=== PATIENT | male | born 1980 | race African-American/Black ===

== ENCOUNTER 2017-05-26 12:28 | Emergency (ER) | payer OTHER ==
[2017-05-26] MEDS: DIPHTH,PERTUSS(ACELL),TET TOX 0.5 ML DISP.SYRIN. VAX IM ×2 (13:57)
== END 2017-05-26 14:02 | disposition home or self-care (01) ==
LOC: ER 12:28
DX: S61.214A Laceration without foreign body of right ring finger without damage to nail, initial encounter (principal); Y28.8XXA Contact with other sharp object, undetermined intent, initial encounter; Y93.89 Activity, other specified; Y99.8 Other external cause status; Y92.89 Other specified places as the place of occurrence of the external cause
CPT/HCPCS: 12001; 90471; 90715; 99283-25

== ENCOUNTER 2021-03-29 16:23 | Inpatient (IN) | payer BC, OTHER ==
[~2021-03-29] VITALS: Ht 188 cm; Wt 15.3 kg
[2021-03-29] MEDS ORDERED: IV NORMAL SALINE 1000ML BAG 1,000 ML IV ONE ×2 (17:45)
[2021-03-29] MEDS ORDERED: ACETAMINOPHEN 500 MG TABLET PO ONE (17:45)
--- NOTE | 2021-03-29 17:54 | PHYS DOC ---
Past Medical History Past Medical History: No Pertinent History Past Surgical History: No Surgical History Smoking Status: Never Smoker Alcohol Use: Occasionally Drug Use: None General Adult EDM: Chief Complaint: NAUSEA/VOMITING/DIARRHEA HPI: HPI: Patient is a 40 year old male who presents with nausea and fever that started today. Patient's temperature on arrival was 103.1. Heart rate was 144. Patient denies vomiting/diarrhea. Denies chest pain or shortness of breath. Patient denies taking anything today for symptoms at home. Patient was fully vaccinated for Covid 19. Patient has a history of diabetes, hypertension. Review of Systems: Review of Systems: ROS At least 10 ROS systems have been reviewed and are negative except as documented in the HPI. General: Negative except as outlined in HPI above. Skin: Negative except as outlined in HPI above. HEENT: Negative except as outlined in HPI above. Neck: Negative except as outlined in HPI above. Respiratory: Negative except as outlined in HPI above.. Cardiovascular: Negative except as outlined in HPI above. Abdomen: Negative except as outlined in HPI above. : Negative except as outlined in HPI above. Back/MSK: Negative except as outlined in HPI above. Neuro: Negative except as outlined in HPI above. Psych: Negative except as outlined in HPI above. Heart Score: C/O Chest Pain: No Risk Factors: Risk Factors: DM, Current or recent (<one month) smoker, HTN, HLP, family history of CAD, obesity. Risk Scores: Score 0 - 3: 2.5% MACE over next 6 weeks - Discharge Home Score 4 - 6: 20.3% MACE over next 6 weeks - Admit for Clinical Observation Score 7 - 10: 72.7% MACE over next 6 weeks - Early Invasive Strategies Allergies: Allergies: Allergies Coded Allergies Type Severity Reaction Last Updated Verified No Known Drug Allergies 12/13/13 No Physical Exam: PE: Constitutional: Well developed, well nourished, no acute distress, non-toxic appearance. [] HENT: Normocephalic, atraumatic, bilateral external ears normal, oropharynx moist, no oral exudates, nose normal. [] Eyes: PERRLA, EOMI, conjunctiva normal, no discharge. [] Neck: Normal range of motion, no tenderness, supple, no stridor. [] Cardiovascular:Heart rate regular rhythm, no murmur [] Lungs & Thorax: Bilateral breath sounds clear to auscultation [] Abdomen: Bowel sounds normal, soft, no tenderness, no masses, no pulsatile masses. [] Skin: Warm, dry, no erythema, no rash. [] Back: No tenderness, no CVA tenderness. [] Extremities: No tenderness, no cyanosis, no clubbing, ROM intact, no edema. [] Neurologic: Alert and oriented X 3, normal motor function, normal sensory function, no focal deficits noted. [] Psychologic: Affect normal, judgement normal, mood normal. [] EKG: EKG: Sinus tachycardia. Heart rate 145 bpm. No STEMI. [] Radiology/Procedures: Radiology/Procedures: []Exam: Chest one view INDICATION: Nausea TECHNIQUE: Frontal view of the chest Comparisons: None FINDINGS: The cardiomediastinal silhouette and pulmonary vessels are within normal limits. Hazy opacity in lungs bilaterally. No pleural effusion. IMPRESSION: Findings likely related to mild pulmonary edema. Electronically signed by: Arabella Frias MD (03/29/2021 7:49 PM) [facility] Course & Med Decision Making: Course & Med Decision Making Pertinent Labs and Imaging studies reviewed. (See chart for details) [] 40-year-old male who presents with fever and nausea that started today. Patient temperature on arrival was 103.1, heart rate 145. Work-up in ER consisted of labs, urinalysis, EKG, chest x-ray, ABG. Temperature on arrival was 103.1. Temperature was treated with 1000 mg of Tylenol. After Tylenol was administered, temperature improved, 102.1. Patient's nausea was treated with Zofran while in the ER. Chest x-ray showed findings likely related to mild pulmonary edema. Patient has history of diabetes and hypertension. WBC, 17.7, creatinine 1.6, glucose 262, lactic was 4.6. Patient given 2 L NS bolus. Patient's heart rate improved after NS bolus, heart rate 125. Patient started on Rocephin and azithromycin. Still waiting on results from CTA and UA. Spoke with Dr. White who will be accepting patient for pneumonia and sepsis. Ginny Disclaimer: Ginny Disclaimer: This electronic medical record was generated, in whole or in part, using a voice recognition dictation system. Departure Departure Referrals: UNKNOWN PCP NAME (PCP) QIAN CONWAY APRN Mar 29, 2021 17:53
[2021-03-29] MEDS ORDERED: ONDANSETRON PF 4 MG/2 ML VIAL. IVP ONE (18:00)
[2021-03-29 18:16] LABS: BASO % 0 % (0-3); EOS % 0 % (0-3); HEMATOCRIT 47.1 % (39.0-53.0); HEMOGLOBIN 14.7 g/dL (13.0-17.5); LYMPH # 0.5 x10^3/uL (1.0-4.8); LYMPH % 3 % (24-48); MEAN CORPUSCULAR HEMOGLOBIN 25 pg (25-35); MEAN CORPUSCULAR HGB CONC 31 g/dL (31-37); MEAN CORPUSCULAR VOLUME 79 fL (79-100); MONO # 1.1 x10^3/uL (0.0-1.1); MONO % 6 % (0-9); NEUT # 16.1 x10^3/uL (1.8-7.7); NEUT % 91 % (31-73); PLATELET COUNT 248 x10^3/uL (140-400); RED BLOOD COUNT 5.96 x10^6/uL (4.30-5.70); RED CELL DISTRIBUTION WIDTH 14.9 % (11.5-14.5); WHITE BLOOD COUNT 17.7 x10^3/uL (4.0-11.0)
[2021-03-29 18:44] LABS: INFLUENZA A PATIENT NEGATIVE (NEGATIVE); INFLUENZA B PATIENT NEGATIVE (NEGATIVE)
[2021-03-29 18:50] LABS: CALCIUM 8.9 mg/dL (8.5-10.1); CREATININE 1.6 mg/dL (0.7-1.3); GFR 58.8; POTASSIUM 4.6 mmol/L (3.5-5.1)
[2021-03-29 19:02] LABS: ALBUMIN 3.7 g/dL (3.4-5.0); ALBUMIN/GLOBULIN RATIO 0.7 (1.0-1.7); MAGNESIUM 1.7 mg/dL (1.8-2.4); TOTAL BILIRUBIN 0.9 mg/dL (0.2-1.0); TOTAL PROTEIN 8.7 g/dL (6.4-8.2)
[2021-03-29 19:37] LABS: % BANDS 4 % (0-9); % BASOS 1 % (0-3); % LYMPHS 5 % (24-48); % MONOS 6 % (0-10); % SEGS 84 % (35-66)
[2021-03-29 19:39] LABS: PLT ESTIMATE ADEQUATE (ADEQUATE)
--- NOTE | 2021-03-29 19:51 | RAD ---
Exam: Chest one view INDICATION: Nausea TECHNIQUE: Frontal view of the chest Comparisons: None FINDINGS: The cardiomediastinal silhouette and pulmonary vessels are within normal limits. Hazy opacity in lungs bilaterally. No pleural effusion. IMPRESSION: Findings likely related to mild pulmonary edema. Electronically signed by: Arabella Frias MD (03/29/2021 7:49 PM) [facility]
[2021-03-29] MEDS ORDERED: IOHEXOL 350 MG/ML 100 ML VIAL. IV ONE (20:30)
[2021-03-29] MEDS ORDERED: CONTRAST GIVEN. MC PRN (20:30)
[2021-03-29] MEDS ORDERED: AZITHRMYCN 500MG IVPB FOR OMNI 250 ML IV ONE (20:30)
[2021-03-29] MEDS ORDERED: cefTRIAXone IV Push 1 GM VIAL. IVP ONE (20:30)
--- NOTE | 2021-03-29 20:45 | RAD ---
Exam: CT of chest with contrast INDICATION: Fever TECHNIQUE: Sequential axial images through the chest obtained following the administration of 90 mL o f Isovue-370 IV contrast. Sagittal and coronal reformatted images were reconstructed from the axial d jaye and reviewed. Exposure: One or more of the following in the visualized dose reduction techniques were utilized for this examination: 1. Automated exposure control 2. Adjustment of the MA and/or KV according to patient size 3. Use of iterative of reconstructive technique Comparisons: Chest x-ray same day FINDINGS: Visualized portions of the thyroid are unremarkable. No enlarged mediastinal lymph nodes are identifi ed. Heart size is normal. No pericardial effusion. Thoracic aorta has a normal course and caliber. Pulmon concepción artery is not enlarged. Evaluation for pulmonary emboli limited secondary to contrast bolus timin g. No pulmonary embolus identified within the main or proximal lobar pulmonary arteries. Airways are patent. No consolidation or pneumothorax. No suspicious lung nodules. No pleural effusion or thickening. Visualized upper abdomen is unremarkable. No suspicious osseous lesions or acute fractures. IMPRESSION: 1. Evaluation for pulmonary embolus markedly limited secondary to contrast bolus timing. No embolus identified within the main or proximal lobar pulmonary arteries. 2. No acute process identified in the chest. Electronically signed by: Arabella Frias MD (03/29/2021 8:43 PM) [facility]
[2021-03-29 21:07] LABS: BILIRUBIN,URINE NEGATIVE (NEG); CLARITY,URINE CLOUDY; COLOR,URINE AMBER; NITRITE,URINE NEGATIVE (NEG); PH,URINE 5.5 (<5.0-8.0); PROTEIN,URINE NEGATIVE (NEG-TRACE); UROBILINOGEN,URINE 0.2 mg/dL (0.2 mg/dL)
[2021-03-29 21:28] LABS: HYALINE CASTS, URINE MANY /HPF
[2021-03-29 21:31] LABS: AMORPHOUS SEDIMENT,UR PRESENT /HPF
[2021-03-29 21:33] LABS: BACTERIA,URINE FEW /HPF (0-FEW)
[2021-03-29 23:00] VITALS: BP 120/59
[2021-03-29] MEDS ORDERED: ONDANSETRON PF 4 MG/2 ML VIAL. IVP PRN (23:45)
[2021-03-30 03:00] VITALS: BP 114/53
--- NOTE | 2021-03-30 06:48 | NUR ---
No major change in condition. Has had 2 loose stools since midnight.
--- NOTE | 2021-03-30 09:16 | PDOC1 ---
History and Physical Date of Service: DOS: DATE: 03/30/21 TIME: 09:05 Chief Complaint: Chief Complain: Nausea and fever History of Present Illness: HPI: 40-year-old male with a past medical history of diabetes mellitus and hypertension who comes in for nausea vomiting and fevers. He is found to have a temperature of 103.1 in the ED. Patient also endorses loose bowel movements and some abdominal pain. He was found to be septic in the ED with tachycardia and mildly low blood pressures of 90/60. Lactic acid of 4.6 and pulmonary edema seen on chest x-ray. Patient denies any known sick contacts or recent travel. Denies any chest pain, shortness of breath, dysuria, hematuria or bloody stools. Past Medical/Surgical History: PMH/PSH: Past medical history: Diabetes mellitus and hypertension No past surgical history Allergies: Allergies: Coded Allergies: No Known Drug Allergies (Unverified , 12/13/13) Family History: Family History: Reviewed with no relevant findings Social History: Social History: Denies any alcohol, tobacco or drug abuse Current Medications: Current Medications Current Medications Acetaminophen (Tylenol) 1,000 mg 1X ONCE PO Last administered on 03/29/21at 18:12; Start 03/29/21 at 17:45; Stop 03/29/21 at 17:46; Status DC Sodium Chloride 1,000 ml @ 1,000 mls/hr 1X ONCE IV Last administered on 03/29/21at 18:13; Start 03/29/21 at 17:45; Stop 03/29/21 at 18:44; Status DC Sodium Chloride 1,000 ml @ 1,000 mls/hr 1X ONCE IV Last administered on 03/29/21at 18:13; Start 03/29/21 at 17:45; Stop 03/29/21 at 18:44; Status DC Ondansetron HCl (Zofran) 4 mg 1X ONCE IVP Last administered on 03/29/21at 18:11; Start 03/29/21 at 18:00; Stop 03/29/21 at 18:01; Status DC Ceftriaxone Sodium (Rocephin) 1 gm 1X ONCE IVP Last administered on 03/29/21at 22:14; Start 03/29/21 at 20:30; Stop 03/29/21 at 20:31; Status DC Azithromycin 250 ml @ 250 mls/hr 1X ONCE IV Last administered on 03/29/21at 22:15; Start 03/29/21 at 20:30; Stop 03/29/21 at 21:29; Status DC Iohexol (Omnipaque 350 Mg/ml) 90 ml 1X ONCE IV Last administered on 03/29/21at 20:44; Start 03/29/21 at 20:30; Stop 03/29/21 at 20:31; Status DC Info (CONTRAST GIVEN -- Rx MONITORING) 1 each PRN DAILY PRN MC SEE COMMENTS; Start 03/29/21 at 20:30; Stop 03/31/21 at 20:29 Ondansetron HCl (Zofran) 4 mg PRN Q6HRS PRN IVP NAUSEA/VOMITING; Start 03/29/21 at 23:45 ROS: Review of Systems Review of System REVIEW OF SYSTEMS: GENERAL: Denies weakness SKIN: No bruising, hair changes or rashes. EYES: No blurred, double or loss of vision. NOSE AND THROAT: No history of nosebleeds, hoarseness or sore throat. HEART: No history of palpitations, chest pain or shortness of breath on exertion. LUNGS: Denies cough, hemoptysis, wheezing or shortness of breath. GASTROINTESTINAL: Denies changes in appetite, nausea, vomiting, diarrhea or constipation. GENITOURINARY: No history of frequency, urgency, hesitancy or nocturia. NEUROLOGIC: Denies history of numbness, tingling, or tremor. PSYCHIATRIC: No history of panic, anxiety or depression. ENDOCRINE: No history of heat or cold intolerance, polyuria or polydipsia. EXTREMITIES: Denies joint pain, pain on walking or stiffness. Physical Exam: Vital Signs: Vital Signs Date Time Temp Pulse Resp B/P (MAP) Pulse Ox O2 Delivery O2 Flow Rate FiO2 03/30/21 03:00 99.4 130 18 114/53 (73) 94 Room Air 99.4 Physcial Exam: GEN: No apparent distress. Alert and oriented HEENT: Normal cephalic, atraumatic, external auditory canals are patent EYES: Extraocular muscles are intact, pupil are equally round and reactive to light and accommodation MUSCULOSKELETAL: Well developed , well nourished, good range of motion ENDOCRINE: No thyromegaly was palpated LYMPHATICS: No cervical chain or axillary nodes were noted HEMATOPOIETIC: No bruising NECK: Supple, no JVD, no thyromegaly was noted LUNGS: Clear to auscultation in all lung [place] without rhonchi or wheezing HEART: RRR, S!, S2 present. Peripheral pulses intact, no obvious murmurs noted ABDOMEN: Soft, nontender. Positive bowel sounds, no organomegaly, normal bowel sounds EXTREMITIES: Without clubbing, cyanosis, or edema. Pedal pulses intact. N egative Homans sign NEUROLOGIC: Normal speech and tone. A&O x 3, moves all extremities, no obvious focal deficits PSYCHIATRIC: Normal affect, normal mood. Stable SKIN: No ulcerations or rashes, good skin turgor, no jaundice VASCULAR: Good capillary refill, neurovascular bundle appears to be intact Labs: Labs: Laboratory Tests Test 03/29/21 17:50 03/29/21 17:52 03/29/21 21:03 03/29/21 21:50 Influenza Type A Antigen Negative (NEGATIVE) Influenza Type B Antigen Negative (NEGATIVE) SARS-CoV-2 Antigen (Rapid) Negative (NEGATIVE) White Blood Count 17.7 x10^3/uL (4.0-11.0) Red Blood Count 5.96 x10^6/uL (4.30-5.70) Hemoglobin 14.7 g/dL (13.0-17.5) Hematocrit 47.1 % (39.0-53.0) Mean Corpuscular Volume 79 fL (79-100) Mean Corpuscular Hemoglobin 25 pg (25-35) Mean Corpuscular Hemoglobin Concent 31 g/dL (31-37) Red Cell Distribution Width 14.9 % (11.5-14.5) Platelet Count 248 x10^3/uL (140-400) Neutrophils (%) (Auto) 91 % (31-73) Lymphocytes (%) (Auto) 3 % (24-48) Monocytes (%) (Auto) 6 % (0-9) Eosinophils (%) (Auto) 0 % (0-3) Basophils (%) (Auto) 0 % (0-3) Neutrophils # (Auto) 16.1 x10^3/uL (1.8-7.7) Lymphocytes # (Auto) 0.5 x10^3/uL (1.0-4.8) Monocytes # (Auto) 1.1 x10^3/uL (0.0-1.1) Eosinophils # (Auto) 0.0 x10^3/uL (0.0-0.7) Basophils # (Auto) 0.0 x10^3/uL (0.0-0.2) Segmented Neutrophils % 84 % (35-66) Band Neutrophils % 4 % (0-9) Lymphocytes % 5 % (24-48) Monocytes % 6 % (0-10) Basophils % 1 % (0-3) Platelet Estimate Adequate (ADEQUATE) Large Platelets Few Sodium Level 135 mmol/L (136-145) Potassium Level 4.6 mmol/L (3.5-5.1) Chloride Level 99 mmol/L (98-107) Carbon Dioxide Level 22 mmol/L (21-32) Anion Gap 14 (6-14) Blood Urea Nitrogen 18 mg/dL (8-26) Creatinine 1.6 mg/dL (0.7-1.3) Estimated GFR (Cockcroft-Gault) 58.8 BUN/Creatinine Ratio 11 (6-20) Glucose Level 262 mg/dL (70-99) Lactic Acid Level 4.6 mmol/L (0.4-2.0) 3.7 mmol/L (0.4-2.0) Calcium Level 8.9 mg/dL (8.5-10.1) Magnesium Level 1.7 mg/dL (1.8-2.4) Total Bilirubin 0.9 mg/dL (0.2-1.0) Aspartate Amino Transf (AST/SGOT) 17 U/L (15-37) Alanine Aminotransferase (ALT/SGPT) 49 U/L (16-63) Alkaline Phosphatase 76 U/L (46-116) PU-Kkq-H-Type Natriuretic Peptide 32 pg/mL (0-124) Total Protein 8.7 g/dL (6.4-8.2) Albumin 3.7 g/dL (3.4-5.0) Albumin/Globulin Ratio 0.7 (1.0-1.7) Urine Color Hortencia Urine Clarity Cloudy Urine pH 5.5 (<5.0-8.0) Urine Specific [place] 1.025 (1.000-1.030) Urine Protein Negative mg/dL (NEG-TRACE) Urine Glucose (UA) 100 mg/dL (NEG) Urine Ketones (Stick) Trace mg/dL (NEG) Urine Blood Negative (NEG) Urine Nitrite Negative (NEG) Urine Bilirubin Negative (NEG) Urine Urobilinogen Dipstick 0.2 mg/dL (0.2 mg/dL) Urine Leukocyte Esterase Trace (NEG) Urine RBC 1-2 /HPF (0-2) Urine WBC 5-10 /HPF (0-4) Urine Squamous Epithelial Cells Mod /LPF Urine Amorphous Sediment Present /HPF Urine Bacteria Few /HPF (0-FEW) Urine Hyaline Casts Many /HPF Urine Mucus Marked /LPF Test 03/30/21 08:30 Glucose (Fingerstick) 285 mg/dL (70-99) Laboratory Tests Test 03/29/21 17:50 03/29/21 17:52 03/29/21 21:03 03/29/21 21:50 Influenza Type A Antigen Negative (NEGATIVE) Influenza Type B Antigen Negative (NEGATIVE) SARS-CoV-2 Antigen (Rapid) Negative (NEGATIVE) White Blood Count 17.7 x10^3/uL (4.0-11.0) Red Blood Count 5.96 x10^6/uL (4.30-5.70) Hemoglobin 14.7 g/dL (13.0-17.5) Hematocrit 47.1 % (39.0-53.0) Mean Corpuscular Volume 79 fL (79-100) Mean Corpuscular Hemoglobin 25 pg (25-35) Mean Corpuscular Hemoglobin Concent 31 g/dL (31-37) Red Cell Distribution Width 14.9 % (11.5-14.5) Platelet Count 248 x10^3/uL (140-400) Neutrophils (%) (Auto) 91 % (31-73) Lymphocytes (%) (Auto) 3 % (24-48) Monocytes (%) (Auto) 6 % (0-9) Eosinophils (%) (Auto) 0 % (0-3) Basophils (%) (Auto) 0 % (0-3) Neutrophils # (Auto) 16.1 x10^3/uL (1.8-7.7) Lymphocytes # (Auto) 0.5 x10^3/uL (1.0-4.8) Monocytes # (Auto) 1.1 x10^3/uL (0.0-1.1) Eosinophils # (Auto) 0.0 x10^3/uL (0.0-0.7) Basophils # (Auto) 0.0 x10^3/uL (0.0-0.2) Segmented Neutrophils % 84 % (35-66) Band Neutrophils % 4 % (0-9) Lymphocytes % 5 % (24-48) Monocytes % 6 % (0-10) Basophils % 1 % (0-3) Platelet Estimate Adequate (ADEQUATE) Large Platelets Few Sodium Level 135 mmol/L (136-145) Potassium Level 4.6 mmol/L (3.5-5.1) Chloride Level 99 mmol/L (98-107) Carbon Dioxide Level 22 mmol/L (21-32) Anion Gap 14 (6-14) Blood Urea Nitrogen 18 mg/dL (8-26) Creatinine 1.6 mg/dL (0.7-1.3) Estimated GFR (Cockcroft-Gault) 58.8 BUN/Creatinine Ratio 11 (6-20) Glucose Level 262 mg/dL (70-99) Lactic Acid Level 4.6 mmol/L (0.4-2.0) 3.7 mmol/L (0.4-2.0) Calcium Level 8.9 mg/dL (8.5-10.1) Magnesium Level 1.7 mg/dL (1.8-2.4) Total Bilirubin 0.9 mg/dL (0.2-1.0) Aspartate Amino Transf (AST/SGOT) 17 U/L (15-37) Alanine Aminotransferase (ALT/SGPT) 49 U/L (16-63) Alkaline Phosphatase 76 U/L (46-116) QU-Unh-D-Type Natriuretic Peptide 32 pg/mL (0-124) Total Protein 8.7 g/dL (6.4-8.2) Albumin 3.7 g/dL (3.4-5.0) Albumin/Globulin Ratio 0.7 (1.0-1.7) Urine Color Hortencia Urine Clarity Cloudy Urine pH 5.5 (<5.0-8.0) Urine Specific [place] 1.025 (1.000-1.030) Urine Protein Negative mg/dL (NEG-TRACE) Urine Glucose (UA) 100 mg/dL (NEG) Urine Ketones (Stick) Trace mg/dL (NEG) Urine Blood Negative (NEG) Urine Nitrite Negative (NEG) Urine Bilirubin Negative (NEG) Urine Urobilinogen Dipstick 0.2 mg/dL (0.2 mg/dL) Urine Leukocyte Esterase Trace (NEG) Urine RBC 1-2 /HPF (0-2) Urine WBC 5-10 /HPF (0-4) Urine Squamous Epithelial Cells Mod /LPF Urine Amorphous Sediment Present /HPF Urine Bacteria Few /HPF (0-FEW) Urine Hyaline Casts Many /HPF Urine Mucus Marked /LPF Test 03/30/21 08:30 Glucose (Fingerstick) 285 mg/dL (70-99) Images: Images PROCEDURE: CHEST AP ONLY Exam: Chest one view INDICATION: Nausea TECHNIQUE: Frontal view of the chest Comparisons: None FINDINGS: The cardiomediastinal silhouette and pulmonary vessels are within normal limits. Hazy opacity in lungs bilaterally. No pleural effusion. IMPRESSION: Findings likely related to mild pulmonary edema. PROCEDURE: CT ANGIOGRAPHY CHEST Exam: CT of chest with contrast INDICATION: Fever TECHNIQUE: Sequential axial images through the chest obtained following the administration of 90 mL of Isovue-370 IV contrast. Sagittal and coronal reformatted images were reconstructed from the axial data and reviewed. Exposure: One or more of the following in the visualized dose reduction techniques were utilized for this examination: 1. Automated exposure control 2. Adjustment of the MA and/or KV according to patient size 3. Use of iterative of reconstructive technique Comparisons: Chest x-ray same day FINDINGS: Visualized portions of the thyroid are unremarkable. No enlarged mediastinal lymph nodes are identified. Heart size is normal. No pericardial effusion. Thoracic aorta has a normal course and caliber. Pulmonary artery is not enlarged. Evaluation for pulmonary emboli limited secondary to contrast bolus timing. No pulmonary embolus identif ied within the main or proximal lobar pulmonary arteries. Airways are patent. No consolidation or pneumothorax. No suspicious lung nodules. No pleural effusion or thickening. Visualized upper abdomen is unremarkable. No suspicious osseous lesions or acute fractures. IMPRESSION: 1. Evaluation for pulmonary embolus markedly limited secondary to contrast bolus timing. No embolus identified within the main or proximal lobar pulmonary arteries. 2. No acute process identified in the chest. Assessment/Plan Assessment/Plan Sepsis Gram-negative bacteremia Acute colitis of the ascending colon, likely due to gram-negative organisms and anaerobes Pulmonary edema Lactic acidosis QING due to vasomotor nephropathy Admit to hospitalist service for further management Pending C. difficile Continue Zosyn Continue IV fluids Pending blood culture SNS R ISS and Accu-Cheks Lovenox for DVT prophylaxis Protonix GI prophylaxis ADA diet CODE STATUS full Discussed with RN and SW Disposition inpatient management as above DPOA: Cousin? Justifications for Admission Other Justification MAKAYLA SMITH MD Mar 30, 2021 09:16
[2021-03-30] MEDS ORDERED: ACETAMINOPHEN 325 MG TABLET. PO PRN (09:30)
[2021-03-30] MEDS ORDERED: ZOLPIDEM 5 MG TABLET. PO PRN ×2 (09:30)
[2021-03-30] MEDS ORDERED: ONDANSETRON PF 4 MG/2 ML VIAL. IVP PRN (09:30)
[2021-03-30] MEDS ORDERED: DOCUSATE SODIUM 100 MG CAPSULE. PO PRN (09:30)
[2021-03-30] MEDS ORDERED: DEXTROSE 50% 25 GM / 50ML DISP.SYRIN. IV PRN (09:30)
[2021-03-30] MEDS ORDERED: diphenhydrAMINE 50 MG/ML VIAL IVP PRN (09:30)
[2021-03-30] MEDS ORDERED: PROCHLORPERAZINE 10 MG/2 ML VIAL. IV PRN (09:30)
[2021-03-30] MEDS ORDERED: diphenhydrAMINE HCL 25 MG CAPSULE PO PRN ×2 (09:30)
[2021-03-30] MEDS ORDERED: LORazepam 0.5 MG TABLET PO PRN (09:30)
[2021-03-30] MEDS ORDERED: SENNOSIDES 8.6 MG TABLET PO PRN (09:30)
[2021-03-30] MEDS ORDERED: PIPERACILLIN/TAZOBACTAM 3.375 GM in IV NORMAL SALINE 50ML 50 ML IV ONE (10:00)
[2021-03-30] MEDS: ENOXAPARIN 40 MG/0.4 ML SYRINGE. SQ SCH (10:07)
--- NOTE | 2021-03-30 10:43 | PDOC ---
Infectious Disease Note Vital Signs: Vital Signs Vital Signs Date Time Temp Pulse Resp B/P (MAP) Pulse Ox O2 Delivery O2 Flow Rate FiO2 03/30/21 10:16 107 17 103/63 (76) 95 Room Air 03/30/21 03:00 99.4 99.4 Medications: Inpatient Meds: Medications reviewed. Labs: Lab Laboratory Tests Test 03/29/21 17:50 03/29/21 17:52 03/29/21 21:03 03/29/21 21:50 Influenza Type A Antigen Negative (NEGATIVE) Influenza Type B Antigen Negative (NEGATIVE) SARS-CoV-2 RNA (DIOR) Negative (Negative) SARS-CoV-2 Antigen (Rapid) Negative (NEGATIVE) White Blood Count 17.7 x10^3/uL (4.0-11.0) Red Blood Count 5.96 x10^6/uL (4.30-5.70) Hemoglobin 14.7 g/dL (13.0-17.5) Hematocrit 47.1 % (39.0-53.0) Mean Corpuscular Volume 79 fL (79-100) Mean Corpuscular Hemoglobin 25 pg (25-35) Mean Corpuscular Hemoglobin Concent 31 g/dL (31-37) Red Cell Distribution Width 14.9 % (11.5-14.5) Platelet Count 248 x10^3/uL (140-400) Neutrophils (%) (Auto) 91 % (31-73) Lymphocytes (%) (Auto) 3 % (24-48) Monocytes (%) (Auto) 6 % (0-9) Eosinophils (%) (Auto) 0 % (0-3) Basophils (%) (Auto) 0 % (0-3) Neutrophils # (Auto) 16.1 x10^3/uL (1.8-7.7) Lymphocytes # (Auto) 0.5 x10^3/uL (1.0-4.8) Monocytes # (Auto) 1.1 x10^3/uL (0.0-1.1) Eosinophils # (Auto) 0.0 x10^3/uL (0.0-0.7) Basophils # (Auto) 0.0 x10^3/uL (0.0-0.2) Segmented Neutrophils % 84 % (35-66) Band Neutrophils % 4 % (0-9) Lymphocytes % 5 % (24-48) Monocytes % 6 % (0-10) Basophils % 1 % (0-3) Platelet Estimate Adequate (ADEQUATE) Large Platelets Few Sodium Level 135 mmol/L (136-145) Potassium Level 4.6 mmol/L (3.5-5.1) Chloride Level 99 mmol/L (98-107) Carbon Dioxide Level 22 mmol/L (21-32) Anion Gap 14 (6-14) Blood Urea Nitrogen 18 mg/dL (8-26) Creatinine 1.6 mg/dL (0.7-1.3) Estimated GFR (Cockcroft-Gault) 58.8 BUN/Creatinine Ratio 11 (6-20) Glucose Level 262 mg/dL (70-99) Lactic Acid Level 4.6 mmol/L (0.4-2.0) 3.7 mmol/L (0.4-2.0) Calcium Level 8.9 mg/dL (8.5-10.1) Magnesium Level 1.7 mg/dL (1.8-2.4) Total Bilirubin 0.9 mg/dL (0.2-1.0) Aspartate Amino Transf (AST/SGOT) 17 U/L (15-37) Alanine Aminotransferase (ALT/SGPT) 49 U/L (16-63) Alkaline Phosphatase 76 U/L (46-116) MT-Gbj-S-Type Natriuretic Peptide 32 pg/mL (0-124) Total Protein 8.7 g/dL (6.4-8.2) Albumin 3.7 g/dL (3.4-5.0) Albumin/Globulin Ratio 0.7 (1.0-1.7) Urine Color Hortencia Urine Clarity Cloudy Urine pH 5.5 (<5.0-8.0) Urine Specific [place] 1.025 (1.000-1.030) Urine Protein Negative mg/dL (NEG-TRACE) Urine Glucose (UA) 100 mg/dL (NEG) Urine Ketones (Stick) Trace mg/dL (NEG) Urine Blood Negative (NEG) Urine Nitrite Negative (NEG) Urine Bilirubin Negative (NEG) Urine Urobilinogen Dipstick 0.2 mg/dL (0.2 mg/dL) Urine Leukocyte Esterase Trace (NEG) Urine RBC 1-2 /HPF (0-2) Urine WBC 5-10 /HPF (0-4) Urine Squamous Epithelial Cells Mod /LPF Urine Amorphous Sediment Present /HPF Urine Bacteria Few /HPF (0-FEW) Urine Hyaline Casts Many /HPF Urine Mucus Marked /LPF Test 03/30/21 08:30 Glucose (Fingerstick) 285 mg/dL (70-99) Objective: Assessment: pt seen and examined ID consult dictated Plan: Plan of Care cont zosyn f/u gnr in bc consider abdominal imaging Thank you [id number] KULWINDER HUANG MD Mar 30, 2021 10:43
[2021-03-30] MEDS ORDERED: oxyCODONE/APAP 5/325 1 TAB TABLET PO PRN (10:45)
[2021-03-30] MEDS ORDERED: FAMOTIDINE 20 MG TABLET. PO ONE (10:45)
[2021-03-30] MEDS ORDERED: SIMETHICONE 80 MG TAB.CHEW PO PRN (10:45)
--- NOTE | 2021-03-30 11:07 | CONS ---
DATE OF CONSULTATION: 03/30/2021 REFERRING PHYSICIAN: Dr. White. REASON FOR CONSULTATION: Gram-negative bacteremia, antibiotic management. HISTORY OF PRESENT ILLNESS: A 40-year-old male with history of diabetes, hypertension, presented to the ER yesterday with complaints of nausea, fever, vomiting, loose bowel movement and some abdominal pain. The patient's temperature on arrival was 103.1. He was tachycardic. White count was elevated at 17 K in the ED with lactate of 4.6, creatinine of 1.6. UA showed 5-10 wbc's. Influenza screen negative. SARS-COVID negative. The patient underwent CTA of the chest, which was limited, but negative for PE, no acute process was identified in the chest. Chest x-ray revealed pulmonary edema like changes. The patient was started on Zosyn, also had received 1 dose of ceftriaxone and azithromycin. Blood cultures from 03/29 is positive 1 out of 4 bottles for gram-negative jabari. ID consultation has been requested for antibiotic management. Today, the patient feels a little better. Fever pattern has improved, still continues to have some abdominal discomfort and nausea. Denies any sick contact. Denies being on any antibiotics prior to admission. PAST MEDICAL HISTORY: Diabetes mellitus and hypertension. CURRENT MEDICATIONS: Zosyn. The patient has also received ceftriaxone and azithromycin. SOCIAL HISTORY: Denies smoking, ETOH, or illicit drug use. Lives alone. No sick contact. Has been vaccinated against COVID. ALLERGIES: No known drug allergies. REVIEW OF SYSTEMS: Negative except for above in HPI. PHYSICAL EXAMINATION: VITAL SIGNS: Temperature 99.4, T-max 103, pulse of 107, respirations 17, blood pressure 103/63, oxygen saturation 95% on room air. GENERAL: Alert, oriented x 3 male, appears tired, lying in ER on [place] in no acute distress, pleasant, cooperative. HEENT: Normocephalic, atraumatic. Anicteric. No thrush. Oral mucosa moist. NECK: Supple, no JVD. LUNGS: Clear bilaterally. No wheezing. HEART: S1, S2. No gallops or murmurs. ABDOMEN: Soft, mild diffuse tenderness. No rebound or guarding. Bowel sounds present. EXTREMITIES: No edema, no cyanosis. DERMATOLOGIC: Warm, dry, no generalized rash. NEUROLOGIC: Alert, oriented x 3, grossly nonfocal. PSYCHIATRIC: Calm and cooperative. LABORATORY DATA: WBC 17.7, hemoglobin 14.7, hematocrit 47.1, platelets 248. Sodium 135, potassium 4.6, chloride 99, bicarbonate 22, BUN 18, creatinine 1.6. Lactate 4.6, repeat is 3.7. LFTs are normal. UA shows 5-10 wbc's. SARS-COVID negative. Influenza screen negative. IMAGING: CTA chest as above. Chest x-ray reviewed. MICRO: Blood culture 1 out of 4 bottles positive for gram-negative jabari. IMPRESSION: 1. Sepsis from gram-negative bacteremia. 2. Gram-negative bacteremia, present on admission, source appears GI. 3. Pyuria. 4. Fever. 5. Leukocytosis and lactic acidosis. 6. Acute kidney injury. Likely dehydration 7. Nausea, vomiting, diarrhea. 8. Abdominal pain. 9. Diabetes. 10. Hypertension. RECOMMENDATIONS: 1. Continue Zosyn. 2. Consider abdominal imaging. 3. Follow up gram-negative jabari in blood cultures. 4. Follow up labs and cultures. Follow-up C. difficile PCR 5. Continue supportive care. 6. Maintain adequate hydration. Discussed with RN in ED. Thank you, Dr. White, for consulting Infectious Disease to participate in this patient's care. FERN DR: Vinod TID: [id number] [facility] H[facility]ITALKenrick
--- NOTE | 2021-03-30 11:39 | EKG ---
[facility] [address] [place] [address] Test Date: 2021-03-29 Test Time: 17:48:09 Pat Name: LEXX SOSA Department: Room: ED HOLD 18 Gender: M Equipment Driver: [id number] : 1980 Requested By: QIAN CONWAY Order Number: [id number] Reading MD: Jermaine Pugh Measurements Intervals [place] Rate: 145 P: 23 [place]: 142 QRS: -42 QRSD: 84 T: 66 QT: 268 QTc: 419 Interpretive Statements SINUS TACHYCARDIA ABNORMAL LEFT AXIS DEVIATION LEFT ANTERIOR FASCICULAR BLOCK ABNORMAL ECG RI6.01 No previous ECG available for comparison Electronically Signed On 03-31-2021 8:18:18 [employer]AR THERMAL TECHNICIAN by Jermaine Pugh
--- NOTE | 2021-03-30 13:00 | RAD ---
EXAM: Abdomen and pelvis CT without intravenous contrast. HISTORY: Nausea. Pain. TECHNIQUE: Computed tomographic images of the abdomen and pelvis were obtained without contrast. Mult iplanar reformatting was performed. *One or more of the following individualized dose reduction techniques were utilized for this examina tion: 1. Automated exposure control. 2. Adjustment of the mA and/or kV according to patient size. 3. Use of iterative reconstruction technique. COMPARISON: None. FINDINGS: Evaluation of the lower thorax demonstration no infiltrate or pleural effusion. The heart i s normal in size. There is hepatic steatosis. No focal hepatic lesion is seen. The gallbladder, pancr eas, spleen, adrenal glands and kidneys are unremarkable. There is no appendicitis. There is circumferential wall thickening with surrounding fatty stranding i nvolving the colon from the proximal ascending colon to the descending-sigmoid colon junction. The im aging appearance favors acute colitis. There is no bowel obstruction. There is no free air. The aorta is normal in caliber. There is no lymp hadenopathy. There is contrast within the bladder due to a recent contrast-enhanced chest CT. There i s gas within the ventral abdominal wall fat due to a medication injection site. There is fixation ins trumentation within the right hemipelvis. There is no acute fracture or suspicious osseous lesion. IMPRESSION: 1. Acute colitis from the ascending colon to the descending-sigmoid junction. Correlate for infectiou s or inflammatory etiologies. 2. Hepatic steatosis. Electronically signed by: Sinai Ramires MD (03/30/2021 12:58 PM) [id number]
[2021-03-30] MEDS ORDERED: PIPERACILLIN/TAZOBACTAM 3.375 GM in IV NORMAL SALINE 50ML 50 ML IV SCH (18:00)
[2021-03-30 19:00] VITALS: BP 110/57
[2021-03-30] MEDS: PIPERACILLIN/TAZOBACTAM 4.5 GM in IV NORMAL SALINE 100ML 100 ML IV SCH ×2 (19:19→23:53)
[2021-03-30] MEDS: FAMOTIDINE 20 MG TABLET. PO SCH (20:17)
[2021-03-30 23:00] VITALS: BP 110/65
[2021-03-31 03:00] VITALS: BP 120/70
[2021-03-31] MEDS: PIPERACILLIN/TAZOBACTAM 4.5 GM in IV NORMAL SALINE 100ML 100 ML IV SCH ×3 (04:58→17:44)
[2021-03-31 07:00] VITALS: BP 124/71
[2021-03-31 07:03] LABS: BASO # 0.1 x10^3/uL (0.0-0.2); BASO % 1 % (0-3); EOS % 0 % (0-3); HEMATOCRIT 40.9 % (39.0-53.0); LYMPH # 0.9 x10^3/uL (1.0-4.8); LYMPH % 11 % (24-48); MEAN CORPUSCULAR HEMOGLOBIN 25 pg (25-35); MEAN CORPUSCULAR HGB CONC 32 g/dL (31-37); MEAN CORPUSCULAR VOLUME 78 fL (79-100); MONO # 0.5 x10^3/uL (0.0-1.1); MONO % 6 % (0-9); NEUT # 6.7 x10^3/uL (1.8-7.7); NEUT % 83 % (31-73); PLATELET COUNT 214 x10^3/uL (140-400); RED BLOOD COUNT 5.24 x10^6/uL (4.30-5.70); RED CELL DISTRIBUTION WIDTH 15.1 % (11.5-14.5); WHITE BLOOD COUNT 8.1 x10^3/uL (4.0-11.0)
[2021-03-31 07:41] LABS: CALCIUM 8.1 mg/dL (8.5-10.1); CREATININE 1.2 mg/dL (0.7-1.3); MAGNESIUM 2.1 mg/dL (1.8-2.4); PHOSPHORUS 3.7 mg/dL (2.6-4.7)
--- NOTE | 2021-03-31 08:47 | PDOC ---
Infectious Disease Note Subjective: Subjective pt feels a little better less nausea, vomiting, diarrhea still has abdo cramps Vital Signs: Vital Signs Vital Signs Date Time Temp Pulse Resp B/P (MAP) Pulse Ox O2 Delivery O2 Flow Rate FiO2 03/31/21 03:00 99.2 112 20 120/70 (87) 94 Room Air 99.2 Physical Exam: PHYSICAL EXAM GENERAL: Alert, oriented x 3 male, in no acute distress, pleasant, cooperative. HEENT: Normocephalic, atraumatic. Anicteric. No thrush. Oral mucosa moist. NECK: Supple, no JVD. LUNGS: Clear bilaterally. No wheezing. HEART: S1, S2. No gallops or murmurs. ABDOMEN: Soft, mild diffuse tenderness. No rebound or guarding. Bowel sounds present. EXTREMITIES: No edema, no cyanosis. DERMATOLOGIC: Warm, dry, no generalized rash. NEUROLOGIC: Alert, oriented x 3, grossly nonfocal. PSYCHIATRIC: Calm and cooperative. Medications: Inpatient Meds: Medications reviewed. Labs: Lab Laboratory Tests Test 03/30/21 20:14 03/31/21 05:45 03/31/21 07:27 Glucose (Fingerstick) 226 mg/dL (70-99) 200 mg/dL (70-99) White Blood Count 8.1 x10^3/uL (4.0-11.0) Red Blood Count 5.24 x10^6/uL (4.30-5.70) Hemoglobin 13.0 g/dL (13.0-17.5) Hematocrit 40.9 % (39.0-53.0) Mean Corpuscular Volume 78 fL (79-100) Mean Corpuscular Hemoglobin 25 pg (25-35) Mean Corpuscular Hemoglobin Concent 32 g/dL (31-37) Red Cell Distribution Width 15.1 % (11.5-14.5) Platelet Count 214 x10^3/uL (140-400) Neutrophils (%) (Auto) 83 % (31-73) Lymphocytes (%) (Auto) 11 % (24-48) Monocytes (%) (Auto) 6 % (0-9) Eosinophils (%) (Auto) 0 % (0-3) Basophils (%) (Auto) 1 % (0-3) Neutrophils # (Auto) 6.7 x10^3/uL (1.8-7.7) Lymphocytes # (Auto) 0.9 x10^3/uL (1.0-4.8) Monocytes # (Auto) 0.5 x10^3/uL (0.0-1.1) Eosinophils # (Auto) 0.0 x10^3/uL (0.0-0.7) Basophils # (Auto) 0.1 x10^3/uL (0.0-0.2) Sodium Level 141 mmol/L (136-145) Potassium Level 4.0 mmol/L (3.5-5.1) Chloride Level 104 mmol/L (98-107) Carbon Dioxide Level 22 mmol/L (21-32) Anion Gap 15 (6-14) Blood Urea Nitrogen 12 mg/dL (8-26) Creatinine 1.2 mg/dL (0.7-1.3) Estimated GFR (Cockcroft-Gault) 82.0 Glucose Level 242 mg/dL (70-99) Calcium Level 8.1 mg/dL (8.5-10.1) Phosphorus Level 3.7 mg/dL (2.6-4.7) Magnesium Level 2.1 mg/dL (1.8-2.4) Micro PATIENT: LEXX SOSA DACCOUNT: [id number] : 1980 LOCATION: ED HOLD AGE: 40 SEX: M EXAM STATUS: ADM IN ORD. PHYSICIAN: KULWINDER HUANG MD REASON: nausea ,abdo pain, gram neg bacteremia PROCEDURE: CT ABDOMEN PELVIS WO CONTRAST EXAM: Abdomen and pelvis CT without intravenous contrast. HISTORY: Nausea. Pain. TECHNIQUE: Computed tomographic images of the abdomen and pelvis were obtained without contrast. Multiplanar reformatting was performed. *One or more of the following individualized dose reduction techniques were utilized for this examination: 1. Automated exposure control. 2. Adjustment of the mA and/or kV according to patient size. 3. Use of iterative reconstruction technique. COMPARISON: None. FINDINGS: Evaluation of the lower thorax demonstration no infiltrate or pleural effusion. The heart is normal in size. There is hepatic steatosis. No focal hepatic lesion is seen. The gallbladder, pancreas, spleen, adrenal glands and kidneys are unremarkable. There is no appendicitis. There is circumferential wall thickening with surrounding fatty stranding involving the colon from the proximal ascending colon to the descending-sigmoid colon junction. The imaging appearance favors acute colitis. There is no bowel obstruction. There is no free air. The aorta is normal in caliber. There is no lymphadenopathy. There is contrast within the bladder due to a recent contrast-enhanced chest CT. There is gas within the ventral abdominal wall fat due to a medication injection site. There is fixation instrumentation within the right hemipelvis. There is no acute fracture or suspicious osseous lesion. IMPRESSION: 1. Acute colitis from the ascending colon to the descending-sigmoid junction. Correlate for infectious or inflammatory etiologies. 2. Hepatic steatosis. RUN DATE: 03/31/21 [facility] *LIVE* PAGE 1 RUN TIME: 075 Specimen Inquiry PATIENT: LEXX SOSA Kenrick ACCT: [id number] LOC: [address] [place] [address] U: [id number] AGE/SX: 40/M ROOM: 562 RE03/29/[address]: MAKAYLA SMITH MD : 1980 BED: 1 DIS: STATUS: ADM IN TLOC: SPEC #: [id number] KEL: 03/29/21 STATUS: KOBE REQ #: [id number] RECD: 03/29/21-1799 [facility] DR: QIAN CONWAY APRN SOURCE: BLOOD ENTR: 03/29/21-[address]: BRIAN,STAFF [facility]: UNKNOWN PCP NAME ORDERED: BCULT Procedure Result BLOOD CULTURE Final GRAM POSITIVE COCCI IN CLUSTERS IN THE ANAEROBIC BOTTLE OF THE SECOND SET. 2 OF 4 BOTTLES ARE POSITIVE OF 2 SETS COLLECTED. CALLED TO NAYELY THORNE IN ER 03/30/21 AT 1059 BY Jarrell AMOS. CULTURES HAVE BEEN SENT TO [facility] FOR FURTHER IDENTIFICATION. AMMENDED REPORT: GRAM NEGATIVE RODS, IN THE AEROBIC BOTTLE OF THIS SET. 3 OF 4 BOTTLES ARE POSITIVE, BOTH SETS. CALLED TO SARA REYNOLDS RN ON 5S AT 7:55 ON 03/31/21 DW MT SENT TO [facility] FOR FURTHER WORKUP. * This is a corrected result. * A prior result that was reported as final has been changed. Objective: Assessment: 1. Sepsis from gram-negative bacteremia and GPC. 2. Gram-negative bacteremia, present on admission, source GI. 3. Pyuria. Urine culture negative so far 4. Fever. Improved 5. Leukocytosis and lactic acidosis. Improving 6. Acute kidney injury. Likely dehydration 7. Nausea, vomiting, diarrhea. Improving. C. difficile negative 8. Abdominal pain. CT shows colitis 9. Diabetes. 10. Hypertension. Gram-positive bacteremia present on admission source appears GI Plan: Plan of Care 1. Continue Zosyn. 2. Start daptomycin 3. Follow up gram-negative jabari and GPC in blood cultures. Called micro lab this a.m. multiple times. No answer Repeat blood cultures in am 4. Follow up labs and cultures. 5. Continue supportive care. 6. Maintain adequate hydration. Discussed with KULWINDER BARRIOS MD Mar 31, 2021 08:47
[2021-03-31] MEDS: DOCUSATE SODIUM 100 MG CAPSULE. PO SCH ×2 (09:00→09:02)
[2021-03-31] MEDS: ENOXAPARIN 40 MG/0.4 ML SYRINGE. SQ SCH (09:02)
[2021-03-31 11:00] VITALS: BP 143/83
[2021-03-31] MEDS ORDERED: NORMAL SALINE IV SCH (11:00)
[2021-03-31] MEDS ORDERED: DAPTOMYCIN IV SCH (11:00)
--- NOTE | 2021-03-31 12:57 | NUR ---
SW following. Discussed with RN, pt from home, room air, ada diet, Flu and COVID-19 negative. ID following - pt currently on IV Dapto and IV Zosyn. SW will continue to follow.
[2021-03-31 15:00] VITALS: BP 128/77
[2021-03-31] MEDS ORDERED: DEXTROSE 50% 25 GM / 50ML DISP.SYRIN. IV PRN (15:00)
--- NOTE | 2021-03-31 15:23 | PDOC ---
[employer] PROGRESS NOTE Date of Service DOS: DATE: 03/31/21 TIME: 15:18 Chief Complaint Chief Complaint Sepsis Gram-negative bacteremia Acute colitis of the ascending colon, likely due to gram-negative organisms and anaerobes Pulmonary edema Lactic acidosis QING due to vasomotor nephropathy History of Present Illness History of Present Illness 03/31, feels better, still some abd cramping, less distress Pending C. difficile, colitis on CT, cannot exclude inflammatory, consult GI Continue IV abx, Zosyn, on IV fluids for hypotension was dry Pending blood culture SNS blood sugar high, takes 2 meds as outpatient, metformin and ozempic, follows at [facility] for DVT prophylaxis Protonix GI prophylaxis ADA diet CODE STATUS full Disposition inpatient management as above DPOA: Cousin Vitals/I&O Vitals/I&O: Vital Signs Date Time Temp Pulse Resp B/P (MAP) Pulse Ox O2 Delivery O2 Flow Rate FiO2 03/31/21 11:00 97.8 103 20 143/83 (103) 98 Room Air 97.8 I & O 03/30/21 03/30/21 03/31/21 15:00 23:00 07:00 Intake Total 50 ml 180 ml Balance 50 ml 180 ml Physical Exam Physical Exam: GENERAL: Alert, oriented x 3 male, in no acute distress, pleasant, cooperative. HEENT: Normocephalic, atraumatic. Anicteric. No thrush. Oral mucosa moist. NECK: Supple, no JVD. LUNGS: Clear bilaterally. No wheezing. HEART: S1, S2. No gallops or murmurs. ABDOMEN: Soft, mild diffuse tenderness. No rebound or guarding. Bowel sounds present. EXTREMITIES: No edema, no cyanosis. DERMATOLOGIC: Warm, dry, no generalized rash. NEUROLOGIC: Alert, oriented x 3, grossly nonfocal. PSYCHIATRIC: Calm and cooperative. General: Oriented X3, Cooperative, No acute distress Abdomen: Soft Skin: No rashes, No breakdown Labs Labs: Laboratory Tests Test 03/30/21 20:14 03/31/21 05:45 03/31/21 07:27 03/31/21 11:52 Glucose (Fingerstick) 226 mg/dL (70-99) 200 mg/dL (70-99) 281 mg/dL (70-99) White Blood Count 8.1 x10^3/uL (4.0-11.0) Red Blood Count 5.24 x10^6/uL (4.30-5.70) Hemoglobin 13.0 g/dL (13.0-17.5) Hematocrit 40.9 % (39.0-53.0) Mean Corpuscular Volume 78 fL (79-100) Mean Corpuscular Hemoglobin 25 pg (25-35) Mean Corpuscular Hemoglobin Concent 32 g/dL (31-37) Red Cell Distribution Width 15.1 % (11.5-14.5) Platelet Count 214 x10^3/uL (140-400) Neutrophils (%) (Auto) 83 % (31-73) Lymphocytes (%) (Auto) 11 % (24-48) Monocytes (%) (Auto) 6 % (0-9) Eosinophils (%) (Auto) 0 % (0-3) Basophils (%) (Auto) 1 % (0-3) Neutrophils # (Auto) 6.7 x10^3/uL (1.8-7.7) Lymphocytes # (Auto) 0.9 x10^3/uL (1.0-4.8) Monocytes # (Auto) 0.5 x10^3/uL (0.0-1.1) Eosinophils # (Auto) 0.0 x10^3/uL (0.0-0.7) Basophils # (Auto) 0.1 x10^3/uL (0.0-0.2) Sodium Level 141 mmol/L (136-145) Potassium Level 4.0 mmol/L (3.5-5.1) Chloride Level 104 mmol/L (98-107) Carbon Dioxide Level 22 mmol/L (21-32) Anion Gap 15 (6-14) Blood Urea Nitrogen 12 mg/dL (8-26) Creatinine 1.2 mg/dL (0.7-1.3) Estimated GFR (Cockcroft-Gault) 82.0 Glucose Level 242 mg/dL (70-99) Calcium Level 8.1 mg/dL (8.5-10.1) Phosphorus Level 3.7 mg/dL (2.6-4.7) Magnesium Level 2.1 mg/dL (1.8-2.4) Review of Systems Review of Systems: no nv.d. feels weak some stomach cramping Comment Review of Relevant I have reviewed the following items ronel (where applicable) has been applied. Medications: Current Medications Medications (Trade) Dose Ordered Sig/Semaj Route PRN Reason Start Time Stop Time Status Last Admin Dose Admin Famotidine (Pepcid) 20 mg QHS PO 03/30/21 21:00 03/30/21 20:17 Piperacillin Sod/ Tazobactam Sod 4.5 gm/Sodium Chloride 100 ml @ 200 mls/hr Q6HRS IV 03/30/21 18:00 03/31/21 13:14 Daptomycin 700 mg/ Sodium Chloride 50 ml @ 100 mls/hr Q24H IV 03/31/21 11:00 03/31/21 11:00 Justifications for Admission Other Justification sepsis NEGRA WESTFALL MD Mar 31, 2021 15:23
[2021-03-31] MEDS ORDERED: INSULIN GLARGINE SYRINGE. SQ SCH (16:00)
--- NOTE | 2021-03-31 16:30 | PDOC2 ---
GI CONSULT Date of Service: DATE: 03/31/21 TIME: 16:11 Reason For Consult: colitis HPI: HPI: 40 y/o male ill since Monday. Acute onset of sweats and chills, then nausea and loose stools. Denies precipitating events including sick contacts, travel, ingestion of questionable foods, or new medications (including any recent antibiotic use). Wanted to take himself to the hospital but was extremely weak so he called 911. Had some dry-heaves, then vomited some [place] once. No n/v today - tolerated regular diet (chicken, potatoes) and then changed to clear liquids. Has some intermittent lower abdominal cramping and "noises," maybe related to stooling. Reports watery green stools - 2-3 today. Denies chronic GI issues. Has rare heartburn, untreated. No dysphagia, hematemesis, hematochezia, melena, constipation, or weight loss. No chronic issues w/ diarrhea, abd pain, or n/v. No IBD history. No previous EGD or colonoscopy. No GB, liver, pancreas, or PUD history. No routine NSAID use. Home glucose ranges between 200-250. Had COVID vaccines. Father diagnosed w/ colon cancer earlier this year and in February at age 71. PMH: PMH: DM, HLD (denies HTN) FH: Family History: Cancer (father - diagnosed w/ colon cancer earlier this year and 02/2021 age 71) Social History: Smoke: No ALCOHOL: rare Drugs: None ROS: GEN: +chills +sweats HEENT: Denies blurred vision, sore throat CV: Denies chest pain RESP: Denies shortness of air, cough GI: Per HPI : Denies hematuria, dysuria ENDO: Denies weight changes NEURO: Denies confusion, dizziness MSK: +weakness SKIN: Denies jaundice, pruritus Vitals: Vitals: Vital Signs Date Time Temp Pulse Resp B/P (MAP) Pulse Ox O2 Delivery O2 Flow Rate FiO2 03/31/21 11:00 97.8 103 20 143/83 (103) 98 Room Air 97.8 Labs: Labs: Laboratory Tests Test 03/30/21 20:14 03/31/21 05:45 03/31/21 07:27 03/31/21 11:52 Glucose (Fingerstick) 226 mg/dL (70-99) 200 mg/dL (70-99) 281 mg/dL (70-99) White Blood Count 8.1 x10^3/uL (4.0-11.0) Red Blood Count 5.24 x10^6/uL (4.30-5.70) Hemoglobin 13.0 g/dL (13.0-17.5) Hematocrit 40.9 % (39.0-53.0) Mean Corpuscular Volume 78 fL (79-100) Mean Corpuscular Hemoglobin 25 pg (25-35) Mean Corpuscular Hemoglobin Concent 32 g/dL (31-37) Red Cell Distribution Width 15.1 % (11.5-14.5) Platelet Count 214 x10^3/uL (140-400) Neutrophils (%) (Auto) 83 % (31-73) Lymphocytes (%) (Auto) 11 % (24-48) Monocytes (%) (Auto) 6 % (0-9) Eosinophils (%) (Auto) 0 % (0-3) Basophils (%) (Auto) 1 % (0-3) Neutrophils # (Auto) 6.7 x10^3/uL (1.8-7.7) Lymphocytes # (Auto) 0.9 x10^3/uL (1.0-4.8) Monocytes # (Auto) 0.5 x10^3/uL (0.0-1.1) Eosinophils # (Auto) 0.0 x10^3/uL (0.0-0.7) Basophils # (Auto) 0.1 x10^3/uL (0.0-0.2) Sodium Level 141 mmol/L (136-145) Potassium Level 4.0 mmol/L (3.5-5.1) Chloride Level 104 mmol/L (98-107) Carbon Dioxide Level 22 mmol/L (21-32) Anion Gap 15 (6-14) Blood Urea Nitrogen 12 mg/dL (8-26) Creatinine 1.2 mg/dL (0.7-1.3) Estimated GFR (Cockcroft-Gault) 82.0 Glucose Level 242 mg/dL (70-99) Calcium Level 8.1 mg/dL (8.5-10.1) Phosphorus Level 3.7 mg/dL (2.6-4.7) Magnesium Level 2.1 mg/dL (1.8-2.4) URINE CULTURE Final Final No Growth on 03/31/21 at 0835 BLOOD CULTURE Final GRAM NEGATIVE RODS IN 1 OF 4 BOTTLES (2 SETS COLLECTED). BLOOD CULTURE LC Final Final GROWTH OF GRAM POSITIVE COCCI FINAL ID= [STAPHYLOCOCCUS HOMINIS] Allergies: Coded Allergies: No Known Drug Allergies (Unverified , 12/13/13) Medications: Current Medications Medications (Trade) Dose Ordered Sig/Semaj Route PRN Reason Start Time Stop Time Status Last Admin Dose Admin Famotidine (Pepcid) 20 mg QHS PO 03/30/21 21:00 03/30/21 20:17 Piperacillin Sod/ Tazobactam Sod 4.5 gm/Sodium Chloride 100 ml @ 200 mls/hr Q6HRS IV 03/30/21 18:00 03/31/21 13:14 Daptomycin 700 mg/ Sodium Chloride 50 ml @ 100 mls/hr Q24H IV 03/31/21 11:00 03/31/21 11:00 Imaging: Imaging: CXR IMPRESSION: Findings likely related to mild pulmonary edema. Chest CTA IMPRESSION: 1. Evaluation for pulmonary embolus markedly limited secondary to contrast bolus timing. No embolus identified within the main or proximal lobar pulmonary arteries. 2. No acute process identified in the chest. CT A/P IMPRESSION: 1. Acute colitis from the ascending colon to the descending-sigmoid junction. Correlate for infectious or inflammatory etiologies. 2. Hepatic steatosis. PE: GEN: NAD HEENT: Atraumatic, PERRL LUNGS: CTAB anteriorly HEART: mildly tachycardic ABD: NABS, soft, non-tender, obese EXTREMITY: No edema SKIN: No rashes, no jaundice NEURO/PSYCH: A & O 3 A/P: A/P: N/v, diarrhea, intermittent lower abdominal cramping, sweats/chills, weakness Fever, bacteremia (GPC, GNR), microcytosis, lactic acidosis, QING (resolved) Colitis on CT Hepatic steatosis FH colon cancer DM COVID, flu, and C Diff negative -- Discussed w/ Dr. Perry - ?salmonella - will check enteric panel, fecal WBCs, lactoferrin, and iron profile. Okay for full liquid diet. Continue antibiotics per ID. Agree w/ PO acid-medicare interviewer. REGINO DONAHUE Mar 31, 2021 16:30
[2021-03-31] MEDS: INSULIN LISPRO 300 UNITS/3 ML VIAL. SQ SCH (17:40)
[2021-03-31 19:00] VITALS: BP 140/80
[2021-03-31] MEDS: FAMOTIDINE 20 MG TABLET. PO SCH (21:35)
[2021-03-31 23:00] VITALS: BP 125/71
[2021-04-01] MEDS: PIPERACILLIN/TAZOBACTAM 4.5 GM in IV NORMAL SALINE 100ML 100 ML IV SCH ×2 (00:17→05:59)
[2021-04-01 03:00] VITALS: BP 129/76
[2021-04-01 03:48] LABS: BASO % 1 % (0-3); EOS # 0.1 x10^3/uL (0.0-0.7); EOS % 1 % (0-3); HEMATOCRIT 39.5 % (39.0-53.0); HEMOGLOBIN 12.9 g/dL (13.0-17.5); LYMPH # 1.7 x10^3/uL (1.0-4.8); LYMPH % 35 % (24-48); MEAN CORPUSCULAR HEMOGLOBIN 25 pg (25-35); MEAN CORPUSCULAR HGB CONC 33 g/dL (31-37); MEAN CORPUSCULAR VOLUME 78 fL (79-100); MONO # 0.7 x10^3/uL (0.0-1.1); MONO % 15 % (0-9); NEUT # 2.3 x10^3/uL (1.8-7.7); NEUT % 48 % (31-73); PLATELET COUNT 222 x10^3/uL (140-400); RED BLOOD COUNT 5.09 x10^6/uL (4.30-5.70); RED CELL DISTRIBUTION WIDTH 15.1 % (11.5-14.5); WHITE BLOOD COUNT 4.8 x10^3/uL (4.0-11.0)
[2021-04-01 04:02] LABS: CALCIUM 8.2 mg/dL (8.5-10.1); CREATININE 1.1 mg/dL (0.7-1.3); GFR 90.6; MAGNESIUM 2.1 mg/dL (1.8-2.4); POTASSIUM 3.7 mmol/L (3.5-5.1)
[2021-04-01 07:00] VITALS: BP 152/79
[2021-04-01] MEDS: DOCUSATE SODIUM 100 MG CAPSULE. PO SCH (08:21)
[2021-04-01] MEDS: ENOXAPARIN 40 MG/0.4 ML SYRINGE. SQ SCH (08:22)
[2021-04-01] MEDS: INSULIN LISPRO 300 UNITS/3 ML VIAL. SQ SCH ×3 (08:26→17:36)
--- NOTE | 2021-04-01 08:51 | PDOC ---
Infectious Disease Note Subjective: Subjective pt feels better, appetite is improving though slowly less nausea, diarrhea No vomiting Still has some abdominal discomfort Vital Signs: Vital Signs Vital Signs Date Time Temp Pulse Resp B/P (MAP) Pulse Ox O2 Delivery O2 Flow Rate FiO2 04/01/21 07:00 98.1 89 18 152/79 (103) 97 Room Air 98.1 Physical Exam: PHYSICAL EXAM GENERAL: Alert, oriented x 3 male, in no acute distress, pleasant, cooperative. HEENT: Normocephalic, atraumatic. Anicteric. No thrush. Oral mucosa moist. NECK: Supple, no JVD. LUNGS: Clear bilaterally. No wheezing. HEART: S1, S2. No gallops or murmurs. ABDOMEN: Soft, mild diffuse tenderness. No rebound or guarding. Bowel sounds present. EXTREMITIES: No edema, no cyanosis. DERMATOLOGIC: Warm, dry, no generalized rash. NEUROLOGIC: Alert, oriented x 3, grossly nonfocal. PSYCHIATRIC: Calm and cooperative. Medications: Inpatient Meds: Medications reviewed. Labs: Lab Laboratory Tests Test 03/31/21 11:52 03/31/21 16:25 03/31/21 16:30 03/31/21 19:42 Glucose (Fingerstick) 281 mg/dL (70-99) 232 mg/dL (70-99) 226 mg/dL (70-99) Iron Level 21 ug/dL (65-175) Total Iron Binding Capacity 236 ug/dL (250-450) Iron Saturation 9 % (15-34) Test 04/01/21 03:20 04/01/21 06:57 White Blood Count 4.8 x10^3/uL (4.0-11.0) Red Blood Count 5.09 x10^6/uL (4.30-5.70) Hemoglobin 12.9 g/dL (13.0-17.5) Hematocrit 39.5 % (39.0-53.0) Mean Corpuscular Volume 78 fL (79-100) Mean Corpuscular Hemoglobin 25 pg (25-35) Mean Corpuscular Hemoglobin Concent 33 g/dL (31-37) Red Cell Distribution Width 15.1 % (11.5-14.5) Platelet Count 222 x10^3/uL (140-400) Neutrophils (%) (Auto) 48 % (31-73) Lymphocytes (%) (Auto) 35 % (24-48) Monocytes (%) (Auto) 15 % (0-9) Eosinophils (%) (Auto) 1 % (0-3) Basophils (%) (Auto) 1 % (0-3) Neutrophils # (Auto) 2.3 x10^3/uL (1.8-7.7) Lymphocytes # (Auto) 1.7 x10^3/uL (1.0-4.8) Monocytes # (Auto) 0.7 x10^3/uL (0.0-1.1) Eosinophils # (Auto) 0.1 x10^3/uL (0.0-0.7) Basophils # (Auto) 0.0 x10^3/uL (0.0-0.2) Sodium Level 141 mmol/L (136-145) Potassium Level 3.7 mmol/L (3.5-5.1) Chloride Level 105 mmol/L (98-107) Carbon Dioxide Level 24 mmol/L (21-32) Anion Gap 12 (6-14) Blood Urea Nitrogen 12 mg/dL (8-26) Creatinine 1.1 mg/dL (0.7-1.3) Estimated GFR (Cockcroft-Gault) 90.6 Glucose Level 205 mg/dL (70-99) Calcium Level 8.2 mg/dL (8.5-10.1) Magnesium Level 2.1 mg/dL (1.8-2.4) Glucose (Fingerstick) 225 mg/dL (70-99) Micro PATIENT: LEXX SOSA DACCOUNT: [id number] : 1980 LOCATION: ED HOLD AGE: 40 SEX: M EXAM STATUS: ADM IN ORD. PHYSICIAN: KULWINDER HUANG MD REASON: nausea ,abdo pain, gram neg bacteremia PROCEDURE: CT ABDOMEN PELVIS WO CONTRAST EXAM: Abdomen and pelvis CT without intravenous contrast. HISTORY: Nausea. Pain. TECHNIQUE: Computed tomographic images of the abdomen and pelvis were obtained without contrast. Multiplanar reformatting was performed. *One or more of the following individualized dose reduction techniques were utilized for this examination: 1. Automated exposure control. 2. Adjustment of the mA and/or kV according to patient size. 3. Use of iterative reconstruction technique. COMPARISON: None. FINDINGS: Evaluation of the lower thorax demonstration no infiltrate or pleural effusion. The heart is normal in size. There is hepatic steatosis. No focal hepatic lesion is seen. The gallbladder, pancreas, spleen, adrenal glands and kidneys are unremarkable. There is no appendicitis. There is circumferential wall thickening with surrounding fatty stranding involving the colon from the proximal ascending colon to the descending-sigmoid colon junction. The imaging appearance favors acute colitis. There is no bowel obstruction. There is no free air. The aorta is normal in caliber. There is no lymphadenopathy. There is contrast within the bladder due to a recent contrast-enhanced chest CT. There is gas within the ventral ab dominal wall fat due to a medication injection site. There is fixation instrumentation within the right hemipelvis. There is no acute fracture or suspicious osseous lesion. IMPRESSION: 1. Acute colitis from the ascending colon to the descending-sigmoid junction. Correlate for infectious or inflammatory etiologies. 2. Hepatic steatosis. RUN DATE: 03/31/21 [facility] *LIVE* PAGE 1 RUN TIME: 0757 Specimen Inquiry - PATIENT: LEXX SOSA ACCT: [id number] LOC: [address] [place] [address] U: [id number] AGE/SX: 40/M ROOM: 2 REG : 03/29/[address]: MAKAYLA SMITH MD : 1980 BED: 1 DIS: STATUS: ADM IN TLOC: SPEC #: [id number] KEL: 03/29/21 STATUS: COMP REQ #: [id number] RECD: 03/29/21-[address] [facility] [address]: QIAN CONWAY APRN SOURCE: BLOOD ENTR: 03/29/[address]: BRIAN,STAFF [facility]: UNKNOWN PCP NAME ORDERED: BCULT Procedure Result BLOOD CULTURE Final GRAM POSITIVE COCCI IN CLUSTERS IN THE ANAEROBIC BOTTLE OF THE SECOND SET. 2 OF 4 BOTTLES ARE POSITIVE OF 2 SETS COLLECTED. CALLED TO NAYELY THORNE IN ER 03/30/21 AT 1059 BY Jarrell AMOS. CULTURES HAVE BEEN SENT TO [facility] FOR FURTHER IDENTIFICATION. AMMENDED REPORT: GRAM NEGATIVE RODS, IN THE AEROBIC BOTTLE OF THIS SET. 3 OF 4 BOTTLES ARE POSITIVE, BOTH SETS. CALLED TO SARA REYNOLDS RN ON 5S AT 7:55 ON 03/31/21 DW MT SENT TO [facility] FOR FURTHER WORKUP. * This is a corrected result. * A prior result that was reported as final has been changed. Objective: Assessment: 1. Sepsis from gram-negative bacteremia and GPC. 2. Salmonella bacteremia source GI. 3. Pyuria. Urine culture negative so far 4. Fever. Improved 5. Leukocytosis and lactic acidosis. Improving 6. Acute kidney injury. Likely dehydration 7. Nausea, vomiting, diarrhea. Improving. C. difficile negative 8. Abdominal pain. CT shows colitis 9. Diabetes. 10. Hypertension. Gram-positive bacteremia discussed with micro lab 1 out of 4 bottles instead of 2 out of 4 bottles Staphylococcus hominis likely contaminant Plan: Plan of Care Start ceftriaxone Patient was encouraged to give stool specimen for cultures DC daptomycin and Zosyn Discussed with micro lab blood culture GPC 1 out of 4 bottles staph hominis possible contaminant Continue supportive care KULWINDER HUANG MD Apr 01, 2021 08:51
[2021-04-01] MEDS: cefTRIAXone IV Push 2 GM VIAL. IVP SCH (09:44)
--- NOTE | 2021-04-01 10:05 | PDOC ---
Date of Service: DATE: 04/01/21 TIME: 09:57 Subjective: Subjective: Green watery stool last night, no stools today. Tolerating full liquids, no n/v. Lower abd cramping is better. Objective: Objective: Reviewed ID note - GPC 1 out of 4 bottles staph hominis possible contaminant Vital Signs: Vital Signs Date Time Temp Pulse Resp B/P (MAP) Pulse Ox O2 Delivery O2 Flow Rate FiO2 04/01/21 07:00 98.1 89 18 152/79 (103) 97 Room Air 98.1 Labs: Laboratory Tests Test 03/31/21 11:52 03/31/21 16:25 03/31/21 16:30 03/31/21 19:42 Glucose (Fingerstick) 281 mg/dL 232 mg/dL 226 mg/dL Iron Level 21 ug/dL Total Iron Binding Capacity 236 ug/dL Iron Saturation 9 % Test 04/01/21 03:20 04/01/21 06:57 White Blood Count 4.8 x10^3/uL Red Blood Count 5.09 x10^6/uL Hemoglobin 12.9 g/dL Hematocrit 39.5 % Mean Corpuscular Volume 78 fL Mean Corpuscular Hemoglobin 25 pg Mean Corpuscular Hemoglobin Concent 33 g/dL Red Cell Distribution Width 15.1 % Platelet Count 222 x10^3/uL Neutrophils (%) (Auto) 48 % Lymphocytes (%) (Auto) 35 % Monocytes (%) (Auto) 15 % Eosinophils (%) (Auto) 1 % Basophils (%) (Auto) 1 % Neutrophils # (Auto) 2.3 x10^3/uL Lymphocytes # (Auto) 1.7 x10^3/uL Monocytes # (Auto) 0.7 x10^3/uL Eosinophils # (Auto) 0.1 x10^3/uL Basophils # (Auto) 0.0 x10^3/uL Sodium Level 141 mmol/L Potassium Level 3.7 mmol/L Chloride Level 105 mmol/L Carbon Dioxide Level 24 mmol/L Anion Gap 12 Blood Urea Nitrogen 12 mg/dL Creatinine 1.1 mg/dL Estimated GFR (Cockcroft-Gault) 90.6 Glucose Level 205 mg/dL Calcium Level 8.2 mg/dL Magnesium Level 2.1 mg/dL Glucose (Fingerstick) 225 mg/dL BLOOD CULTURE LC Final Final GRAM NEGATIVE RODS FINAL ID= [SALMONELLA SPECIES] SALMONELLA SPECIES ANTIMICROBIAL SUSCEPTIBILITY Final Comment NEG OLIVER 56 SALMONELLA SPECIES ANTIBIOTIC RESULT INTERPRETATION AMPICILLIN <=8 S CEFTRIAXONE <=1 S TRIMETHOPRIM/SULFAMETHOXAZOLE <=0.5/9.5 S Unless otherwise specified, Testing Performed by: [address] [address] For Inquires, the Physician may contact the Microbiology department at [phone] PE: GEN: NAD - sitting on edge of bed eating breakfast LUNGS: CTAB HEART: RRR ABD: obese, non-tender NEURO/PSYCH: A & O 3 A/P: Salmonella bacteremia, colitis Iron deficiency N/v, diarrhea, cramping - better FH colon cancer -- Improving. ID following/managing atbx. Continue support. Outpt 'scopes for further eval of iron deficiency w/ FH colon cancer. Justicifation of Admission Dx: Justifications for Admission: Justification of Admission Dx: Yes REGINO DONAHUE Apr 01, 2021 10:05
--- NOTE | 2021-04-01 10:47 | NUR ---
SW following. Discussed with RN, pt from home, room air, full liquid diet. Flu and COVID-19 negative. Pt on IV abx. Not yet ready for discharge. RN advised no SW needs at this time. SW will continue to follow.
[2021-04-01 11:00] VITALS: BP 118/70
[2021-04-01 15:00] VITALS: BP 117/73
--- NOTE | 2021-04-01 15:28 | PDOC ---
[employer] PROGRESS NOTE Date of Service DOS: DATE: 04/01/21 TIME: 15:28 Chief Complaint Chief Complaint Sepsis Gram-negative bacteremia Acute colitis of the ascending colon, likely due to gram-negative organisms and anaerobes Pulmonary edema Lactic acidosis QING due to vasomotor nephropathy History of Present Illness History of Present Illness 04/01, unable to eat much still loose stools salmonella will need GI follow up , feels better, still some abd cramping, less distress Pending C. difficile, colitis on CT, cannot exclude inflammatory, consult GI Continue IV abx, Zosyn, on IV fluids for hypotension was dry Pending blood culture SNS blood sugar high, takes 2 meds as outpatient, metformin and ozempic, follows at [facility] for DVT prophylaxis Protonix GI prophylaxis ADA diet CODE STATUS full Disposition inpatient management as above DPOA: Cousin Vitals/I&O Vitals/I&O: Vital Signs Date Time Temp Pulse Resp B/P (MAP) Pulse Ox O2 Delivery O2 Flow Rate FiO2 04/01/21 15:00 97.7 84 20 117/73 (88) 97 Room Air 97.7 I & O 03/31/21 03/31/21 04/01/21 15:00 23:00 07:00 Intake Total 480 ml Output Total 250 ml 400 ml Balance -250 ml 80 ml Physical Exam Physical Exam: GENERAL: Alert, oriented x 3 male, in no acute distress, pleasant, cooperative. HEENT: Normocephalic, atraumatic. Anicteric. No thrush. Oral mucosa moist. NECK: Supple, no JVD. LUNGS: Clear bilaterally. No wheezing. HEART: S1, S2. No gallops or murmurs. ABDOMEN: Soft, mild diffuse tenderness. No rebound or guarding. Bowel sounds present. EXTREMITIES: No edema, no cyanosis. DERMATOLOGIC: Warm, dry, no generalized rash. NEUROLOGIC: Alert, oriented x 3, grossly nonfocal. PSYCHIATRIC: Calm and cooperative. General: Oriented X3, Cooperative, No acute distress Abdomen: Soft Skin: No rashes, No breakdown Labs Labs: Laboratory Tests Test 03/31/21 16:25 03/31/21 16:30 03/31/21 19:42 04/01/21 03:20 Glucose (Fingerstick) 232 mg/dL (70-99) 226 mg/dL (70-99) Iron Level 21 ug/dL (65-175) Total Iron Binding Capacity 236 ug/dL (250-450) Iron Saturation 9 % (15-34) White Blood Count 4.8 x10^3/uL (4.0-11.0) Red Blood Count 5.09 x10^6/uL (4.30-5.70) Hemoglobin 12.9 g/dL (13.0-17.5) Hematocrit 39.5 % (39.0-53.0) Mean Corpuscular Volume 78 fL (79-100) Mean Corpuscular Hemoglobin 25 pg (25-35) Mean Corpuscular Hemoglobin Concent 33 g/dL (31-37) Red Cell Distribution Width 15.1 % (11.5-14.5) Platelet Count 222 x10^3/uL (140-400) Neutrophils (%) (Auto) 48 % (31-73) Lymphocytes (%) (Auto) 35 % (24-48) Monocytes (%) (Auto) 15 % (0-9) Eosinophils (%) (Auto) 1 % (0-3) Basophils (%) (Auto) 1 % (0-3) Neutrophils # (Auto) 2.3 x10^3/uL (1.8-7.7) Lymphocytes # (Auto) 1.7 x10^3/uL (1.0-4.8) Monocytes # (Auto) 0.7 x10^3/uL (0.0-1.1) Eosinophils # (Auto) 0.1 x10^3/uL (0.0-0.7) Basophils # (Auto) 0.0 x10^3/uL (0.0-0.2) Sodium Level 141 mmol/L (136-145) Potassium Level 3.7 mmol/L (3.5-5.1) Chloride Level 105 mmol/L (98-107) Carbon Dioxide Level 24 mmol/L (21-32) Anion Gap 12 (6-14) Blood Urea Nitrogen 12 mg/dL (8-26) Creatinine 1.1 mg/dL (0.7-1.3) Estimated GFR (Cockcroft-Gault) 90.6 Glucose Level 205 mg/dL (70-99) Calcium Level 8.2 mg/dL (8.5-10.1) Magnesium Level 2.1 mg/dL (1.8-2.4) Test 04/01/21 06:57 04/01/21 11:16 Glucose (Fingerstick) 225 mg/dL (70-99) 218 mg/dL (70-99) Comment Review of Relevant I have reviewed the following items ronel (where applicable) has been applied. Medications: Current Medications Medications (Trade) Dose Ordered Sig/Semaj Route PRN Reason Start Time Stop Time Status Last Admin Dose Admin Insulin Human Lispro (HumaLOG) 0-9 UNITS TIDWMEALS SQ 03/31/21 17:00 04/01/21 12:15 Insulin Glargine (Lantus Syringe) 20 unit [id number] SQ 03/31/21 16:00 03/31/21 18:08 DC 03/31/21 17:41 Ceftriaxone Sodium (Rocephin) 2 gm Q24H IVP 04/01/21 10:00 04/01/21 09:44 Justifications for Admission Other Justification sepsis NEGRA WESTFALL MD Apr 01, 2021 15:28
[2021-04-01] MEDS ORDERED: PIPERACILLIN/TAZOBACTAM 4.5 GM in IV NORMAL SALINE 100ML 100 ML IV SCH (18:00)
[2021-04-01 19:00] VITALS: BP 137/68
[2021-04-01] MEDS ORDERED: INSULIN GLARGINE SYRINGE. SQ SCH (21:00)
[2021-04-01] MEDS: FAMOTIDINE 20 MG TABLET. PO SCH (21:18)
[2021-04-01] MEDS: LACTOBACILLUS RHAMNOSUS GG 1 CAPSULE. PO SCH (21:18)
[2021-04-01 23:00] VITALS: BP 105/42
[2021-04-02 03:00] VITALS: BP 103/62
[2021-04-02 07:00] VITALS: BP 133/84
[2021-04-02 07:32] LABS: BASO % 1 % (0-3); EOS # 0.1 x10^3/uL (0.0-0.7); EOS % 4 % (0-3); HEMATOCRIT 39.8 % (39.0-53.0); LYMPH # 1.7 x10^3/uL (1.0-4.8); LYMPH % 44 % (24-48); MEAN CORPUSCULAR HEMOGLOBIN 25 pg (25-35); MEAN CORPUSCULAR HGB CONC 33 g/dL (31-37); MEAN CORPUSCULAR VOLUME 77 fL (79-100); MONO # 0.6 x10^3/uL (0.0-1.1); MONO % 15 % (0-9); NEUT # 1.4 x10^3/uL (1.8-7.7); NEUT % 37 % (31-73); PLATELET COUNT 240 x10^3/uL (140-400); RED BLOOD COUNT 5.19 x10^6/uL (4.30-5.70); RED CELL DISTRIBUTION WIDTH 14.7 % (11.5-14.5); WHITE BLOOD COUNT 3.8 x10^3/uL (4.0-11.0)
[2021-04-02 07:53] LABS: CALCIUM 8.8 mg/dL (8.5-10.1); GFR 101.2; MAGNESIUM 2.2 mg/dL (1.8-2.4); POTASSIUM 3.6 mmol/L (3.5-5.1)
[2021-04-02] MEDS: LACTOBACILLUS RHAMNOSUS GG 1 CAPSULE. PO SCH (08:27)
[2021-04-02] MEDS: DOCUSATE SODIUM 100 MG CAPSULE. PO SCH (08:27)
[2021-04-02] MEDS: ENOXAPARIN 40 MG/0.4 ML SYRINGE. SQ SCH (08:29)
[2021-04-02] MEDS: INSULIN LISPRO 300 UNITS/3 ML VIAL. SQ SCH ×2 (08:35→11:58)
[2021-04-02] MEDS: cefTRIAXone IV Push 2 GM VIAL. IVP SCH (10:00)
--- NOTE | 2021-04-02 10:03 | PDOC ---
Infectious Disease Note Subjective: Subjective pt feels better, appetite is improving though slowly No nausea, less diarrhea No vomiting Vital Signs: Vital Signs Vital Signs Date Time Temp Pulse Resp B/P (MAP) Pulse Ox O2 Delivery O2 Flow Rate FiO2 04/02/21 07:00 97.5 74 16 133/84 (100) 95 Room Air 97.5 Physical Exam: PHYSICAL EXAM GENERAL: Alert, oriented x 3 male, in no acute distress, pleasant, cooperative. HEENT: Normocephalic, atraumatic. Anicteric. No thrush. Oral mucosa moist. NECK: Supple, no JVD. LUNGS: Clear bilaterally. No wheezing. HEART: S1, S2. No gallops or murmurs. ABDOMEN: Soft, mild diffuse tenderness. No rebound or guarding. Bowel sounds present. EXTREMITIES: No edema, no cyanosis. DERMATOLOGIC: Warm, dry, no generalized rash. NEUROLOGIC: Alert, oriented x 3, grossly nonfocal. PSYCHIATRIC: Calm and cooperative. Medications: Inpatient Meds: Medications reviewed. Labs: Lab Laboratory Tests Test 04/01/21 11:16 04/01/21 16:25 04/01/21 20:52 04/02/21 06:55 Glucose (Fingerstick) 218 mg/dL (70-99) 217 mg/dL (70-99) 181 mg/dL (70-99) White Blood Count 3.8 x10^3/uL (4.0-11.0) Red Blood Count 5.19 x10^6/uL (4.30-5.70) Hemoglobin 13.0 g/dL (13.0-17.5) Hematocrit 39.8 % (39.0-53.0) Mean Corpuscular Volume 77 fL (79-100) Mean Corpuscular Hemoglobin 25 pg (25-35) Mean Corpuscular Hemoglobin Concent 33 g/dL (31-37) Red Cell Distribution Width 14.7 % (11.5-14.5) Platelet Count 240 x10^3/uL (140-400) Neutrophils (%) (Auto) 37 % (31-73) Lymphocytes (%) (Auto) 44 % (24-48) Monocytes (%) (Auto) 15 % (0-9) Eosinophils (%) (Auto) 4 % (0-3) Basophils (%) (Auto) 1 % (0-3) Neutrophils # (Auto) 1.4 x10^3/uL (1.8-7.7) Lymphocytes # (Auto) 1.7 x10^3/uL (1.0-4.8) Monocytes # (Auto) 0.6 x10^3/uL (0.0-1.1) Eosinophils # (Auto) 0.1 x10^3/uL (0.0-0.7) Basophils # (Auto) 0.0 x10^3/uL (0.0-0.2) Sodium Level 141 mmol/L (136-145) Potassium Level 3.6 mmol/L (3.5-5.1) Chloride Level 104 mmol/L (98-107) Carbon Dioxide Level 25 mmol/L (21-32) Anion Gap 12 (6-14) Blood Urea Nitrogen 12 mg/dL (8-26) Creatinine 1.0 mg/dL (0.7-1.3) Estimated GFR (Cockcroft-Gault) 101.2 Glucose Level 173 mg/dL (70-99) Calcium Level 8.8 mg/dL (8.5-10.1) Magnesium Level 2.2 mg/dL (1.8-2.4) Test 04/02/21 07:18 Glucose (Fingerstick) 183 mg/dL (70-99) Micro PATIENT: LEXX SOSA DACCOUNT: [id number] : 1980 LOCATION: ED HOLD AGE: 40 SEX: M EXAM STATUS: ADM IN ORD. PHYSICIAN: KULWINDER HUANG MD REASON: nausea ,abdo pain, gram neg bacteremia PROCEDURE: CT ABDOMEN PELVIS WO CONTRAST EXAM: Abdomen and pelvis CT without intravenous contrast. HISTORY: Nausea. Pain. TECHNIQUE: Computed tomographic images of the abdomen and pelvis were obtained without contrast. Multiplanar reformatting was performed. *One or more of the following individualized dose reduction techniques were utilized for this examination: 1. Automated exposure control. 2. Adjustment of the mA and/or kV according to patient size. 3. Use of iterative reconstruction technique. COMPARISON: None. FINDINGS: Evaluation of the lower thorax demonstration no infiltrate or pleural effusion. The heart is normal in size. There is hepatic steatosis. No focal hepatic lesion is seen. The gallbladder, pancreas, spleen, adrenal glands and kidneys are unremarkable. There is no appendicitis. There is circumferential wall thickening with surrounding fatty stranding involving the colon from the proximal ascending colon to the descending-sigmoid colon junction. The imaging appearance favors acute colitis. There is no bowel obstruction. There is no free air. The aorta is normal in caliber. There is no lymphadenopathy. There is contrast within the bladder due to a recent contrast-enhanced chest CT. There is gas within the ventral abdominal wall fat due to a medication injection site. There is fixation instrumentation within the right hemipelvis. There is no acute fracture or suspicious osseous lesion. IMPRESSION: 1. Acute colitis from the ascending colon to the descending-sigmoid junction. Correlate for infectious or inflammatory etiologies. 2. Hepatic steatosis. RUN DATE: 03/31/21 [facility] *LIVE* PAGE 1 RUN TIME: 0757 Specimen Inquiry PATIENT: LEXX SOSA ACCT: [id number] LOC: [address] [place] [address] U: [id number] AGE/SX: 40/M ROOM: 562 RE03/29/[address]: MAKAYLA SMITH MD : 1980 BED: 1 DIS: STATUS: ADM IN TLOC: SPEC #: [id number] KEL: 03/29/21 STATUS: KOBE REQ #: [id number] RECD: 03/29/21-[address] [facility] [address]: QIAN CONWAY APRN SOURCE: BLOOD ENTR: 03/29/21-[address]: BRIAN,STAFF [facility]: UNKNOWN PCP NAME ORDERED: BCULT Procedure Result BLOOD CULTURE Final GRAM POSITIVE COCCI IN CLUSTERS IN THE ANAEROBIC BOTTLE OF THE SECOND SET. 2 OF 4 BOTTLES ARE POSITIVE OF 2 SETS COLLECTED. CALLED TO NAYELY THORNE IN ER 03/30/21 AT 1059 BY Jarrell AMOS. CULTURES HAVE BEEN SENT TO [facility] FOR FURTHER IDENTIFICATION. AMMENDED REPORT: GRAM NEGATIVE RODS, IN THE AEROBIC BOTTLE OF THIS SET. 3 OF 4 BOTTLES ARE POSITIVE, BOTH SETS. CALLED TO SARA REYNOLDS RN ON 5S AT 7:55 ON 03/31/21 DW MT SENT TO [facility] FOR FURTHER WORKUP. * This is a corrected result. * A prior result that was reported as final has been changed. Objective: Assessment: 1. Sepsis from gram-negative bacteremia and GPC. 2. Salmonella bacteremia source GI. 3. Pyuria. Urine culture negative so far 4. Fever. Improved 5. Leukocytosis and lactic acidosis. Improving 6. Acute kidney injury. Likely dehydration 7. Nausea, vomiting, diarrhea. Improving. C. difficile negative 8. Abdominal pain. CT shows colitis 9. Diabetes. 10. Hypertension. Gram-positive bacteremia discussed with micro lab 1 out of 4 bottles instead of 2 out of 4 bottles Staphylococcus hominis likely contaminant Plan: Plan of Care Dose ceftriaxone today can be dc home on po cipro 500 mg po bid starting tomorrow for 10 days Side effects discussed including C. difficile colitis Risk of recurrence discussed Patient to seek immediate medical attention if has any systemic symptoms Discussed with micro lab blood culture GPC 1 out of 4 bottles staph hominis possible contaminant Continue supportive care KULWINDER HUANG MD Apr 02, 2021 10:03
[2021-04-02 11:00] VITALS: BP 115/65
--- NOTE | 2021-04-02 11:36 | PDOC ---
G I PROGRESS NOTE Subjective Few complaints. Stools still loose. Taking PO. Objective ID note reviewed. Physical Exam Lungs clear anteriorly. RRR Abdomen soft, not distended. Review of Relevant I have reviewed the following items ronel (where applicable) has been applied. Labs Laboratory Tests Test 03/31/21 11:52 03/31/21 16:25 03/31/21 16:30 03/31/21 19:42 Glucose (Fingerstick) 281 mg/dL (70-99) 232 mg/dL (70-99) 226 mg/dL (70-99) Iron Level 21 ug/dL (65-175) Total Iron Binding Capacity 236 ug/dL (250-450) Iron Saturation 9 % (15-34) Test 04/01/21 03:20 04/01/21 06:57 04/01/21 11:16 04/01/21 16:25 White Blood Count 4.8 x10^3/uL (4.0-11.0) Red Blood Count 5.09 x10^6/uL (4.30-5.70) Hemoglobin 12.9 g/dL (13.0-17.5) Hematocrit 39.5 % (39.0-53.0) Mean Corpuscular Volume 78 fL (79-100) Mean Corpuscular Hemoglobin 25 pg (25-35) Mean Corpuscular Hemoglobin Concent 33 g/dL (31-37) Red Cell Distribution Width 15.1 % (11.5-14.5) Platelet Count 222 x10^3/uL (140-400) Neutrophils (%) (Auto) 48 % (31-73) Lymphocytes (%) (Auto) 35 % (24-48) Monocytes (%) (Auto) 15 % (0-9) Eosinophils (%) (Auto) 1 % (0-3) Basophils (%) (Auto) 1 % (0-3) Neutrophils # (Auto) 2.3 x10^3/uL (1.8-7.7) Lymphocytes # (Auto) 1.7 x10^3/uL (1.0-4.8) Monocytes # (Auto) 0.7 x10^3/uL (0.0-1.1) Eosinophils # (Auto) 0.1 x10^3/uL (0.0-0.7) Basophils # (Auto) 0.0 x10^3/uL (0.0-0.2) Sodium Level 141 mmol/L (136-145) Potassium Level 3.7 mmol/L (3.5-5.1) Chloride Level 105 mmol/L (98-107) Carbon Dioxide Level 24 mmol/L (21-32) Anion Gap 12 (6-14) Blood Urea Nitrogen 12 mg/dL (8-26) Creatinine 1.1 mg/dL (0.7-1.3) Estimated GFR (Cockcroft-Gault) 90.6 Glucose Level 205 mg/dL (70-99) Calcium Level 8.2 mg/dL (8.5-10.1) Magnesium Level 2.1 mg/dL (1.8-2.4) Glucose (Fingerstick) 225 mg/dL (70-99) 218 mg/dL (70-99) 217 mg/dL (70-99) Test 04/01/21 20:52 04/02/21 06:55 04/02/21 07:18 Glucose (Fingerstick) 181 mg/dL (70-99) 183 mg/dL (70-99) White Blood Count 3.8 x10^3/uL (4.0-11.0) Red Blood Count 5.19 x10^6/uL (4.30-5.70) Hemoglobin 13.0 g/dL (13.0-17.5) Hematocrit 39.8 % (39.0-53.0) Mean Corpuscular Volume 77 fL (79-100) Mean Corpuscular Hemoglobin 25 pg (25-35) Mean Corpuscular Hemoglobin Concent 33 g/dL (31-37) Red Cell Distribution Width 14.7 % (11.5-14.5) Platelet Count 240 x10^3/uL (140-400) Neutrophils (%) (Auto) 37 % (31-73) Lymphocytes (%) (Auto) 44 % (24-48) Monocytes (%) (Auto) 15 % (0-9) Eosinophils (%) (Auto) 4 % (0-3) Basophils (%) (Auto) 1 % (0-3) Neutrophils # (Auto) 1.4 x10^3/uL (1.8-7.7) Lymphocytes # (Auto) 1.7 x10^3/uL (1.0-4.8) Monocytes # (Auto) 0.6 x10^3/uL (0.0-1.1) Eosinophils # (Auto) 0.1 x10^3/uL (0.0-0.7) Basophils # (Auto) 0.0 x10^3/uL (0.0-0.2) Sodium Level 141 mmol/L (136-145) Potassium Level 3.6 mmol/L (3.5-5.1) Chloride Level 104 mmol/L (98-107) Carbon Dioxide Level 25 mmol/L (21-32) Anion Gap 12 (6-14) Blood Urea Nitrogen 12 mg/dL (8-26) Creatinine 1.0 mg/dL (0.7-1.3) Estimated GFR (Cockcroft-Gault) 101.2 Glucose Level 173 mg/dL (70-99) Calcium Level 8.8 mg/dL (8.5-10.1) Magnesium Level 2.2 mg/dL (1.8-2.4) Laboratory Tests Test 04/01/21 16:25 04/01/21 20:52 04/02/21 06:55 04/02/21 07:18 Glucose (Fingerstick) 217 mg/dL (70-99) 181 mg/dL (70-99) 183 mg/dL (70-99) White Blood Count 3.8 x10^3/uL (4.0-11.0) Red Blood Count 5.19 x10^6/uL (4.30-5.70) Hemoglobin 13.0 g/dL (13.0-17.5) Hematocrit 39.8 % (39.0-53.0) Mean Corpuscular Volume 77 fL (79-100) Mean Corpuscular Hemoglobin 25 pg (25-35) Mean Corpuscular Hemoglobin Concent 33 g/dL (31-37) Red Cell Distribution Width 14.7 % (11.5-14.5) Platelet Count 240 x10^3/uL (140-400) Neutrophils (%) (Auto) 37 % (31-73) Lymphocytes (%) (Auto) 44 % (24-48) Monocytes (%) (Auto) 15 % (0-9) Eosinophils (%) (Auto) 4 % (0-3) Basophils (%) (Auto) 1 % (0-3) Neutrophils # (Auto) 1.4 x10^3/uL (1.8-7.7) Lymphocytes # (Auto) 1.7 x10^3/uL (1.0-4.8) Monocytes # (Auto) 0.6 x10^3/uL (0.0-1.1) Eosinophils # (Auto) 0.1 x10^3/uL (0.0-0.7) Basophils # (Auto) 0.0 x10^3/uL (0.0-0.2) Sodium Level 141 mmol/L (136-145) Potassium Level 3.6 mmol/L (3.5-5.1) Chloride Level 104 mmol/L (98-107) Carbon Dioxide Level 25 mmol/L (21-32) Anion Gap 12 (6-14) Blood Urea Nitrogen 12 mg/dL (8-26) Creatinine 1.0 mg/dL (0.7-1.3) Estimated GFR (Cockcroft-Gault) 101.2 Glucose Level 173 mg/dL (70-99) Calcium Level 8.8 mg/dL (8.5-10.1) Magnesium Level 2.2 mg/dL (1.8-2.4) Microbiology 04/01/21 Fecal Leukocyte Stain - Final, Complete 04/01/21 Blood Culture - Preliminary, Resulted NO GROWTH AFTER 1 DAY 03/29/21 Urine Culture - Final, Complete Vitals/I & O Vital Sign - Last 24 Hours 04/01/21 04/01/21 04/01/21 04/01/21 15:00 19:00 20:00 23:00 Temp 97.7 98.2 98.3 97.7 98.2 98.3 Pulse 84 77 80 Resp 20 18 20 B/P (MAP) 117/73 (88) 137/68 (91) 105/42 (63) Pulse Ox 97 98 97 O2 Delivery Room Air Room Air Room Air Room Air 04/02/21 04/02/21 03:00 07:00 Temp 98.4 97.5 98.4 97.5 Pulse 72 74 Resp 16 16 B/P (MAP) 103/62 (76) 133/84 (100) Pulse Ox 96 95 O2 Delivery Room Air Room Air Intake and Output 04/01/21 04/01/21 04/02/21 15:00 23:00 07:00 Intake Total 840 ml Output Total 0 ml Balance 840 ml 0 ml Assessment Salmonella colitis; with positive blood cultures, maybe variant of Typhoid fever. NOHEMI Plan of Care Note OK with me to dismiss on po Cipro per ID. Will have office contact re: outpatient scopes re: the NOHEMI. Justicifation of Admission Dx: Justifications for Admission: Justification of Admission Dx: Yes BRITTANY BRADLEY MD Apr 02, 2021 11:36
[2021-04-02] MEDS ORDERED: CIPR500T94 PO (12:32)
--- NOTE | 2021-04-02 14:56 | NUR ---
Discharge Note: [facility] [address] [place] [address] Discharge instructions and discharge home medications reviewed with Patient and a copy given. All questions have been answered and understanding verbalized. The following instructions and handouts were given: f/u with pcp within two weeks. Discontinued lines and drains: Peripheral IV intact. Patient discharged to Home or Self Care with Family Member via [facility].
--- NOTE | 2021-04-02 15:30 | PDOC3 ---
Discharge Summary Visit Information Date of Admission: Mar 29, 2021 Date of Discharge: Apr 02, 2021 Final Diagnosis Sepsis Gram-negative bacteremia Acute colitis of the ascending colon, likely due to gram-negative organisms and anaerobes Pulmonary edema Lactic acidosis QING due to vasomotor nephropathy Brief Hospital Course Allergies Allergies Coded Allergies Type Severity Reaction Last Updated Verified No Known Drug Allergies 12/13/13 No Vital Signs Vital Signs Date Time Temp Pulse Resp B/P (MAP) Pulse Ox O2 Delivery O2 Flow Rate FiO2 04/02/21 11:00 97.4 74 20 115/65 (82) 97 Room Air 97.4 Lab Results Laboratory Tests Test 03/31/21 16:25 03/31/21 16:30 03/31/21 19:42 04/01/21 03:20 Glucose (Fingerstick) 232 mg/dL (70-99) 226 mg/dL (70-99) Iron Level 21 ug/dL (65-175) Total Iron Binding Capacity 236 ug/dL (250-450) Iron Saturation 9 % (15-34) White Blood Count 4.8 x10^3/uL (4.0-11.0) Red Blood Count 5.09 x10^6/uL (4.30-5.70) Hemoglobin 12.9 g/dL (13.0-17.5) Hematocrit 39.5 % (39.0-53.0) Mean Corpuscular Volume 78 fL (79-100) Mean Corpuscular Hemoglobin 25 pg (25-35) Mean Corpuscular Hemoglobin Concent 33 g/dL (31-37) Red Cell Distribution Width 15.1 % (11.5-14.5) Platelet Count 222 x10^3/uL (140-400) Neutrophils (%) (Auto) 48 % (31-73) Lymphocytes (%) (Auto) 35 % (24-48) Monocytes (%) (Auto) 15 % (0-9) Eosinophils (%) (Auto) 1 % (0-3) Basophils (%) (Auto) 1 % (0-3) Neutrophils # (Auto) 2.3 x10^3/uL (1.8-7.7) Lymphocytes # (Auto) 1.7 x10^3/uL (1.0-4.8) Monocytes # (Auto) 0.7 x10^3/uL (0.0-1.1) Eosinophils # (Auto) 0.1 x10^3/uL (0.0-0.7) Basophils # (Auto) 0.0 x10^3/uL (0.0-0.2) Sodium Level 141 mmol/L (136-145) Potassium Level 3.7 mmol/L (3.5-5.1) Chloride Level 105 mmol/L (98-107) Carbon Dioxide Level 24 mmol/L (21-32) Anion Gap 12 (6-14) Blood Urea Nitrogen 12 mg/dL (8-26) Creatinine 1.1 mg/dL (0.7-1.3) Estimated GFR (Cockcroft-Gault) 90.6 Glucose Level 205 mg/dL (70-99) Calcium Level 8.2 mg/dL (8.5-10.1) Magnesium Level 2.1 mg/dL (1.8-2.4) Test 04/01/21 06:57 04/01/21 11:16 04/01/21 16:25 04/01/21 20:52 Glucose (Fingerstick) 225 mg/dL (70-99) 218 mg/dL (70-99) 217 mg/dL (70-99) 181 mg/dL (70-99) Test 04/02/21 06:55 04/02/21 07:18 04/02/21 11:14 White Blood Count 3.8 x10^3/uL (4.0-11.0) Red Blood Count 5.19 x10^6/uL (4.30-5.70) Hemoglobin 13.0 g/dL (13.0-17.5) Hematocrit 39.8 % (39.0-53.0) Mean Corpuscular Volume 77 fL (79-100) Mean Corpuscular Hemoglobin 25 pg (25-35) Mean Corpuscular Hemoglobin Concent 33 g/dL (31-37) Red Cell Distribution Width 14.7 % (11.5-14.5) Platelet Count 240 x10^3/uL (140-400) Neutrophils (%) (Auto) 37 % (31-73) Lymphocytes (%) (Auto) 44 % (24-48) Monocytes (%) (Auto) 15 % (0-9) Eosinophils (%) (Auto) 4 % (0-3) Basophils (%) (Auto) 1 % (0-3) Neutrophils # (Auto) 1.4 x10^3/uL (1.8-7.7) Lymphocytes # (Auto) 1.7 x10^3/uL (1.0-4.8) Monocytes # (Auto) 0.6 x10^3/uL (0.0-1.1) Eosinophils # (Auto) 0.1 x10^3/uL (0.0-0.7) Basophils # (Auto) 0.0 x10^3/uL (0.0-0.2) Sodium Level 141 mmol/L (136-145) Potassium Level 3.6 mmol/L (3.5-5.1) Chloride Level 104 mmol/L (98-107) Carbon Dioxide Level 25 mmol/L (21-32) Anion Gap 12 (6-14) Blood Urea Nitrogen 12 mg/dL (8-26) Creatinine 1.0 mg/dL (0.7-1.3) Estimated GFR (Cockcroft-Gault) 101.2 Glucose Level 173 mg/dL (70-99) Calcium Level 8.8 mg/dL (8.5-10.1) Magnesium Level 2.2 mg/dL (1.8-2.4) Glucose (Fingerstick) 183 mg/dL (70-99) 204 mg/dL (70-99) Laboratory Tests Test 04/01/21 16:25 04/01/21 20:52 04/02/21 06:55 04/02/21 07:18 Glucose (Fingerstick) 217 mg/dL (70-99) 181 mg/dL (70-99) 183 mg/dL (70-99) White Blood Count 3.8 x10^3/uL (4.0-11.0) Red Blood Count 5.19 x10^6/uL (4.30-5.70) Hemoglobin 13.0 g/dL (13.0-17.5) Hematocrit 39.8 % (39.0-53.0) Mean Corpuscular Volume 77 fL (79-100) Mean Corpuscular Hemoglobin 25 pg (25-35) Mean Corpuscular Hemoglobin Concent 33 g/dL (31-37) Red Cell Distribution Width 14.7 % (11.5-14.5) Platelet Count 240 x10^3/uL (140-400) Neutrophils (%) (Auto) 37 % (31-73) Lymphocytes (%) (Auto) 44 % (24-48) Monocytes (%) (Auto) 15 % (0-9) Eosinophils (%) (Auto) 4 % (0-3) Basophils (%) (Auto) 1 % (0-3) Neutrophils # (Auto) 1.4 x10^3/uL (1.8-7.7) Lymphocytes # (Auto) 1.7 x10^3/uL (1.0-4.8) Monocytes # (Auto) 0.6 x10^3/uL (0.0-1.1) Eosinophils # (Auto) 0.1 x10^3/uL (0.0-0.7) Basophils # (Auto) 0.0 x10^3/uL (0.0-0.2) Sodium Level 141 mmol/L (136-145) Potassium Level 3.6 mmol/L (3.5-5.1) Chloride Level 104 mmol/L (98-107) Carbon Dioxide Level 25 mmol/L (21-32) Anion Gap 12 (6-14) Blood Urea Nitrogen 12 mg/dL (8-26) Creatinine 1.0 mg/dL (0.7-1.3) Estimated GFR (Cockcroft-Gault) 101.2 Glucose Level 173 mg/dL (70-99) Calcium Level 8.8 mg/dL (8.5-10.1) Magnesium Level 2.2 mg/dL (1.8-2.4) Test 04/02/21 11:14 Glucose (Fingerstick) 204 mg/dL (70-99) Brief Hospital Course Mr. Sparrow is a 40 old admit w nausea, fever, vomiting, loose bowel movement and some abdominal pain. \+ colitis, salmonella T 103.1. He was tachycardic. White count 17, with lactate of 4.6, creatinine of 1.6. SARS-COVID negative. CT showed colitis, started on Zosyn, also had received 1 dose of ceftriaxone ID and GI cosujlt, will need GI f/u Discharge Information Condition at Discharge: Improved Follow Up: Weeks Disposition/Orders: D/C to Home Scheduled Ciprofloxacin Hcl (Cipro) 500 Mg Tablet, 1 TAB PO BID for colitis for 10 Days, #20 Ref 0 Prescribed by: NEGRA WESTFALL on 04/02/21 1232 Patient Instructions Patient Instructions > 30 min face to face today Justicifation of Admission Dx: Justifications for Admission: Justification of Admission Dx: Yes NEGRA WESTFALL MD Apr 02, 2021 15:30
== END 2021-04-02 14:56 | disposition home or self-care (01) | DRG 871 ==
LOC: ER 16:23 → ED HOLD 20:41 → 5 SOUTH 22:03
PROVIDERS: ADMIT Internal Medicine; ATTEND Internal Medicine
DX: A41.50 Gram-negative sepsis, unspecified (principal); N17.0 Acute kidney failure with tubular necrosis; A02.0 Salmonella enteritis; J81.1 Chronic pulmonary edema; E11.9 Type 2 diabetes mellitus without complications; B96.89 Other specified bacterial agents as the cause of diseases classified elsewhere; E61.1 Iron deficiency; E78.5 Hyperlipidemia, unspecified; E86.0 Dehydration; I10 Essential (primary) hypertension; K76.0 Fatty (change of) liver, not elsewhere classified; Z20.822 Contact with and (suspected) exposure to COVID-19; Z80.0 Family history of malignant neoplasm of digestive organs
CPT/HCPCS: 36415; 71045; 71275; 74176; 80048; 80053; 81001; 82962; 83540; 83550; 83605; 83631; 83735; 83880; 84100; 85007; 85025; 87040; 87077; 87086; 87186; 87205; 87426; 87493; 87505; 87804; 93005; 96361; 96365; 96366; 96368; 96372; 96375; J0456; J0696; J0878; J1650; J1815; J2405; J2543; J7030; Q9967; U0003; U0005; 99285-25; G0378